=== PATIENT | female | born 1955 | race Caucasian/White ===

== ENCOUNTER 2022-08-21 08:15 | Inpatient (IN) | payer BC, OTHER ==
--- OUTSIDE RECORDS SUMMARY | 2022-08-21 08:19 | XMS REPORT | Continuity of Care Document ---
:1955 Author Organization [facility] t Address [address] [place] [address] [place] [id number] Care Team Providers Name Role Phone José Manuel Caba MD Primary Care Physician CATHY HARRIS Attending Clinician Unavailable YULISSA HAQ Attending Clinician Unavailable LAB90 Attending Clinician Unavailable JESSICA WINKLER Attending Clinician Unavailable HARINDER BERRIOS Attending Clinician Unavailable ABNER SILVA Attending Clinician Unavailable MELISSA LIVINGSTON Attending Clinician Unavailable PROVIDER, AFFILIATE Attending Clinician Unavailable Melissa Livingston MD Attending Clinician [phone] JOSÉ MANUEL CABA Attending Clinician Unavailable Luc Haines DO Attending Clinician ROGERS HENSON Attending Clinician Unavailable Rogers Tamayo Attending Clinician Jens Lott MD Attending Clinician 1, [facility] Attending Clinician Unavailable [facility] Attending Clinician Unavailable Long Boggs MD Attending Clinician ROGERS HENSON Admitting Clinician Unavailable Payers Payer Name Policy Type Policy Number Effective Date Expiration Date Uzma ruiz [employer] 16 [id number] 2020 00:00:00 HMO-POS Problems Condition Condition Condition Status Onset Resolution Last Treating Co mments Source Name Details Category Date Date Treatment Clinician Date 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 6-05 Se ybold to to 00:00: - conditions conditions 00 Ex terna classified classified l elsewhere elsewhere COPD COPD Disease Active Daly exacerbati exacerbati 3-06 Se ybold on on 00:00: - 00 Externa l Acute Acute Disease Active Daly non-recurr non-recurr 518 Se ybold ent ent 00:00: - frontal frontal 00 Externa sinusitis sinusitis l Seasonal Seasonal Disease Active Kelse y allergic allergic 518 Seybol d rhinitis rhinitis 00:00: - due to due to 00 Externa pollen pollen l Hyperlipid Hyperlipid Disease Active Elena ugalde emia emia 5 Seybold 00:00: - 00 Externa l Allergic Allergic Disease Active Jamesse y rhinitis rhinitis 08-15 Seybol d 00:00: - 00 Externa l Simple Simple Disease Active Overview: Daly chronic chronic 6-10 Formattin Seybo ld bronchitis bronchitis 00:00: g of this 00 note might be different from the original. On albuterol Last Assessmen t & Plan: Formattin g of this note might be different from the original. Controlle d Essential Essential Disease Active Overview: Daly hypertensi hypertensi 6-10 Formattin Seybold on on 00:00: g of this - 00 note Externa might be l different from the original. On arbLast Assessmen t & Plan: Formattin g of this note might be different from the original. 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 episode episode On snriLast Assessmen t & Plan: Formattin g of this note might be different from the original. Controlle d BRAYDEN BRAYDEN Disease Active Daly (generaliz (generaliz 6-10 Se ybold ed anxiety ed anxiety 00:00: - disorder) disorder) 00 Exte rna l Closed Closed Disease Active Univers fracture fracture 9-18 ity of of right of right 00:00: [place] wrist wrist 00 [facility] Allergies, Adverse Reactions, Alerts Allergy Allergy Status Severity Reaction(s) Onset Inactive Treating Comm ents Source Name Type Date Date Clinician NO KNOWN Drug Active Univers ALLERGIE Class ity of S [facility] [place] [facility] Social History Social Habit Start Date Stop Date Quantity Comments Source History of tobacco Daly Kooekaterina - use External Gender identity Dalyjones cooley - External Sexual orientation Daly Russell - External Exposure to Not sure University of SARS-CoV-2 (event) [facility] [place] [facility] History of Social 2020-07-27 2020-07-27 Daly Kooekaterina - function 00:00:00 00:00:00 External Tobacco use and 2019-06-27 2019-06-27 Never used Universit y of exposure 00:00:00 00:00:00 [facility] [place] [facility] Tobacco Comment 2018-11-04 2018-11-04 Vape Universit y of 00:00:00 00:00:00 [facility] [place] [facility] Sex Ass[birth year] Daly cooley - 00:00:00 00:00:00 External Smoking Status Start Date Stop Date Source Unknown if ever smoked Universit y of [facility] [place] [facility] Occasional tobacco smoker 2022-07-22 00:00:00 Neal borjasnaheed Russell - External Current every day smoker 2019-06-27 00:00:00 Uni versity [facility] Medications Ordered Filled Start Stop Current Ordering Indication Dosage Frequency Signature Comments Components Source Medication Medication Date Date Medication? Clinician (SIG) Name Name Cyanocobala Yes Take by James goldman min 6-05 mouth Seybold (VITAMIN 13:46: - B-12 ER OR) 11 Externa l Cholecalcif Yes Take by James goldman chago 6-05 mouth Seybold (Vitamin 13:46: - D3) 25 MCG 11 Externa (1000 UT) l oral Chewable Tablet Magnesium Yes Take by Danial y 250 MG oral 6-05 mouth Seybold Tablet 13:46: - 11 Externa l BIOTIN 5000 Yes Take by James goldman OR 6-05 mouth Seybold 13:46: - 11 Externa l Ascorbic Yes 1000mg Take 1 Kelse y Acid 6-05 tablet Seybold (Vitamin C) 13:46: (1,000 mg - 1000 MG 11 total) by Externa oral Tablet mouth l daily Cyanocobala 0 Yes Take by James goldman min -05 mouth Seybold (VITAMIN 13:46: - B-12 ER OR) 11 Externa l Cholecalcif 0 Yes Take by James goldman chago 6-05 mouth Seybold (Vitamin 13:46: - D3) 25 MCG 11 Externa (1000 UT) l oral Chewable Tablet Magnesium Yes Take by James y 250 MG oral 6-05 mouth Seybold Tablet 13:46: - 11 Externa l BIOTIN 5000 0 Yes Take by James lopezy OR 6-05 mouth Seybold 13:46: - 11 Externa l Ascorbic 0 Yes 1000mg Take 1 Kelse y Acid -05 tablet Seybold (Vitamin C) 13:46: (1,000 mg - 1000 MG 11 total) by Externa oral Tablet mouth l daily ALBUTEROL 2022-0 2022- No Inhale Kelse y SULFATE IN 07-22-05 into the Seyb old 13:43: 00:00 lungs - 30 :00 Externa l Venlafaxine 2022-0 Yes [id number] TAKE 2 Daly HCl 75 MG 6-05 CAPSULES(1 Seyb old oral 00:00: 50 MG) BY - Capsule 24 00 MOUTH Externa Hour DAILY l Sustained Release Venlafaxine 2022-0 Yes [id number] TAKE 2 Daly HCl 75 MG 6-05 CAPSULES(1 Seyb old oral 00:00: 50 MG) BY - Capsule 24 00 MOUTH Externa Hour DAILY l Sustained Release Atorvastati 2022-0 Yes [id number] 10mg Take 1 Daly n Calcium 5-17 tablet (10 Seyb old 10 MG oral 00:00: mg total) - Tablet 00 by mouth Externa daily l Atorvastati 2022-0 Yes [id number] 10mg Take 1 Daly n Calcium 5-17 tablet (10 Seyb old 10 MG oral 00:00: mg total) - Tablet 00 by mouth Externa daily l ALBUTEROL 2022-0 Yes Inhale Daly SULFATE IN 3-20 into the Seybo ld 14:36: lungs - 24 Externa l Venlafaxine 2022-0 Yes [id number] TAKE 2 Daly HCl 75 MG 3-20 CAPSULES(1 Seyb old oral 00:00: 50 MG) BY - Capsule 24 00 MOUTH Externa Hour DAILY l Sustained Release Venlafaxine 2022-0 2023- No [id number] TAKE 2 Daly HCl 75 MG 3-20 06-05 CAPSULES(1 Sey bold oral 00:00: 00:00 50 MG) BY - Capsule 24 00 :00 MOUTH Externa Hour DAILY l Sustained Release Albuterol 2022-0 Yes [id number] 2{puff} Q.25D Inhale 2 Daly HFA 108 (90 3-06 puffs into Se ybold Base) 00:00: the lungs - MCG/ACT IN 00 every 6 Rn Float a AERS hours as l needed for wheezing or shortness of breath methylPREDN 2022-0 Yes [id number] 1{loree} Take 1 loree Daly ISolone 4 3-06 by mouth Seybol d MG oral 00:00: See Admin - Tablet 00 Instructio Externa Therapy ns Use as l Pack directed FLUTICASONE 2022-0 Yes [id number] 2 sprays Daly PROPIONATE, 3-06 in each Seybo ld NASAL, 50 00:00: nostril - MCG/ACT 00 daily prn Externa nasal for l Suspension congestion Azelastine 2022-0 Yes [id number] 2 sprays Daly HCl 0.1 % 3-06 in each Seybold nasal 00:00: nostril - Solution 00 bid prn Externa for l congestion Montelukast 2022-0 Yes [id number] 10mg Take 1 Daly (Singulair) 3-06 tablet (10 Se ybold 10 MG oral 00:00: mg total) - Tablet 00 by mouth Externa tablet nightly l Benzonatate 2022-0 Yes [id number] 200mg Q.[id number] Take 1 Daly 200 MG oral 3-06 [id number] capsule Seybold Capsule 00:00: 3D (200 mg - 00 total) by Externa mouth 3 l times daily as needed for cough Albuterol 2022-0 Yes [id number] 2{puff} Q.25D Inhale 2 Daly HFA 108 (90 3-06 puffs into Se ybold Base) 00:00: the lungs - MCG/ACT IN 00 every 6 Rn Float a AERS hours as l needed for wheezing or shortness of breath FLUTICASONE 2022-0 Yes [id number] 2 sprays Daly PROPIONATE, 3-06 in each Seybo ld NASAL, 50 00:00: nostril - MCG/ACT 00 daily prn Externa nasal for l Suspension congestion Albuterol 2022-0 Yes [id number] 2{puff} Q.25D Inhale 2 Daly HFA 108 (90 3-06 puffs into Se ybold Base) 00:00: the lungs - MCG/ACT IN 00 every 6 Rn Float a AERS hours as l needed for wheezing or shortness of breath FLUTICASONE 2022-0 Yes [id number] 2 sprays Daly PROPIONATE, 3-06 in each Seybo ld NASAL, 50 00:00: nostril - MCG/ACT 00 daily prn Externa nasal for l Suspension congestion Albuterol 0 Yes [id number] 2{puff} Q.25D Inhale 2 Daly HFA 108 (90 3-06 puffs into Se ybold Base) 00:00: the lungs - MCG/ACT IN 00 every 6 Rn Float a AERS hours as l needed for wheezing or shortness of breath methylPREDN 2022-0 Yes [id number] 1{loree} Take 1 loree Daly ISolone 4 3-06 by mouth Seybol d MG oral 00:00: See Admin - Tablet 00 Instructio Externa Therapy ns Use as l Pack directed FLUTICASONE 2022-0 Yes [id number] 2 sprays Daly PROPIONATE, 3-06 in each Seybo ld NASAL, 50 00:00: nostril - MCG/ACT 00 daily prn Externa nasal for l Suspension congestion Azelastine 2022-0 Yes [id number] 2 sprays Daly HCl 0.1 % 3-06 in each Seybold nasal 00:00: nostril - Solution 00 bid prn Externa for l congestion Montelukast 2022-0 Yes [id number] 10mg Take 1 Daly (Singulair) 3-06 tablet (10 Se ybold 10 MG oral 00:00: mg total) - Tablet 00 by mouth Externa tablet nightly l Benzonatate 2022-0 Yes [id number] 200mg Q.[id number] Take 1 Daly 200 MG oral 3-06 [id number] capsule Seybold Capsule 00:00: 3D (200 mg - 00 total) by Externa mouth 3 l times daily as needed for cough methylPREDN No [id number] 1{loree} Take 1 loree Daly ISolone 4 04-22 by mouth Seybo ld MG oral 00:00: 00:00 See Admin - Tablet 00 :00 Instructio Externa Therapy ns Use as l Pack directed Cefdinir 2022- No [id number] 300mg Take 1 Daly 300 MG oral 04-22 capsule Seyb old Capsule 00:00: 00:00 (300 mg - 00 :00 total) by Externa mouth 2 l times daily for 10 days Azelastine 2022- No [id number] 2 sprays Daly HCl 0.1 % 04-22 in each Seybol d nasal 00:00: 00:00 nostril - Solution 00 :00 bid prn Externa for l congestion Montelukast 2022- No [id number] 10mg Take 1 Daly (Singulair) 04-22 tablet (10 S eybold 10 MG oral 00:00: 00:00 mg total) - Tablet 00 :00 by mouth Externa tablet nightly l Benzonatate 2022- No [id number] 200mg Q.[id number] Take 1 Daly 200 MG oral 04-22 [id number] capsule Seybold Capsule 00:00: 00:00 3D (200 mg - 00 :00 total) by Externa mouth 3 l times daily as needed for cough Cefdinir No [id number] 300mg Take 1 Daly 300 MG oral 04-22-17 capsule Seyb old Capsule 00:00: 04:59 (300 mg - 00 :00 total) by Externa mouth 2 l times daily for 10 days Venlafaxine 2021-02 Yes [id number] TAKE 2 Daly HCl 75 MG 2-22 CAPSULES(1 Seyb old oral 00:00: 50 MG) BY - Capsule 24 00 MOUTH Externa Hour DAILY l Sustained Release Venlafaxine 2021-02- No [id number] TAKE 2 Daly HCl 75 MG 2-22 03-20 CAPSULES(1 Sey bold oral 00:00: 00:00 50 MG) BY - Capsule 24 00 :00 MOUTH Externa Hour DAILY l Sustained Release Losartan 2021-02 Yes [id number] TAKE 1 James sey Potassium 0-03 TABLET(100 Seyb old 100 MG oral 00:00: MG) BY - Tablet 00 MOUTH IN Externa THE l MORNING Losartan 2021-02 Yes [id number] TAKE 1 James sey Potassium 0-03 TABLET(100 Seyb old 100 MG oral 00:00: MG) BY - Tablet 00 MOUTH IN Externa THE l MORNING Losartan 2021-02 Yes [id number] TAKE 1 James sey Potassium 0-03 TABLET(100 Seyb old 100 MG oral 00:00: MG) BY - Tablet 00 MOUTH IN Externa THE l MORNING Losartan 2021-02 Yes [id number] TAKE 1 James sey Potassium 0-03 TABLET(100 Seyb old 100 MG oral 00:00: MG) BY - Tablet 00 MOUTH IN Externa THE l MORNING Amoxicillin Yes [id number] 1{tbl} Take 1 Daly -Pot 5-18 tablet by Seybold Clavulanate 00:00: mouth in 875-125 MG 00 the oral Tablet morning and 1 tablet in the evening. Benzonatate Yes [id number] 100mg Q.[id number] Take 1 Daly (Tessalon 5-18 [id number] capsule S ellyn Diaz) 100 00:00: 3D (100 mg MG oral 00 total) by Capsule mouth 3 times daily as needed for cough Trazodone 2021- No 50mg Take 50 mg K elsey HCl 50 MG 06-25 by mouth Seybo ld oral Tablet 14:56: 00:00 nightly 16 :00 ALBUTEROL Yes Inhale Daly SULFATE IN 06-25 into the Seybo ld 13:50: lungs 40 ALBUTEROL 0 Yes Inhale Daly SULFATE IN 06-25 into the Seybo ld 13:50: lungs 40 ALBUTEROL 0 Yes Inhale Daly SULFATE IN 06-25 into the Seybo ld 13:50: lungs - 40 Externa l Losartan 2021- No 25mg Take 25 mg Ke lsey Potassium 06-25 by mouth Seybo ld 25 MG oral 13:50: 00:00 daily Tablet 17 :00 Trazodone Yes [id number] 50mg QD Take 1 K elsey HCl 50 MG 5-09 tablet (50 Seyb old oral Tablet 00:00: mg total) - 00 by mouth Externa nightly as l needed for sleep Trazodone Yes [id number] 50mg QD Take 1 K elsey HCl 50 MG 5-09 tablet (50 Seyb old oral Tablet 00:00: mg total) - 00 by mouth Externa nightly as l needed for sleep Trazodone Yes [id number] 50mg QD Take 1 K elsey HCl 50 MG 5-09 tablet (50 Seyb old oral Tablet 00:00: mg total) - 00 by mouth Externa nightly as l needed for sleep Atorvastati Yes 10mg Take 1 Tiara ey n Calcium 5-09 tablet (10 Seyb old 10 MG oral 00:00: mg total) Tablet 00 by mouth daily Losartan Yes [id number] 100mg Take 1 Ke lsey Potassium 5-09 tablet Seybold 100 MG oral 00:00: (100 mg Tablet 00 total) by mouth daily Venlafaxine Yes [id number] TAKE 2 Daly HCl 75 MG 5-09 CAPSULES(1 Seyb old oral 00:00: 50 MG) BY Capsule 24 00 MOUTH Hour DAILY Sustained Release Trazodone Yes [id number] 50mg QD Take 1 K elsey HCl 50 MG 5-09 tablet (50 Seyb old oral Tablet 00:00: mg total) 00 by mouth nightly as needed for sleep Atorvastati Yes 10mg Take 1 Tiara ey n Calcium 5-09 tablet (10 Seyb old 10 MG oral 00:00: mg total) Tablet 00 by mouth daily Losartan Yes [id number] 100mg Take 1 Ke lsey Potassium 5-09 tablet Seybold 100 MG oral 00:00: (100 mg Tablet 00 total) by mouth daily Venlafaxine Yes [id number] TAKE 2 Daly HCl 75 MG 5-09 CAPSULES(1 Seyb old oral 00:00: 50 MG) BY Capsule 24 00 MOUTH Hour DAILY Sustained Release Trazodone Yes [id number] 50mg QD Take 1 K elsey HCl 50 MG 5-09 tablet (50 Seyb old oral Tablet 00:00: mg total) 00 by mouth nightly as needed for sleep Atorvastati Yes 10mg Take 1 Tiara ey n Calcium 5-09 tablet (10 Seyb old 10 MG oral 00:00: mg total) - Tablet 00 by mouth Externa daily l Trazodone Yes [id number] 50mg QD Take 1 K elsey HCl 50 MG 5-09 tablet (50 Seyb old oral Tablet 00:00: mg total) - 00 by mouth Externa nightly as l needed for sleep Atorvastati Yes 10mg Take 1 Tiara ey n Calcium 5-09 tablet (10 Seyb old 10 MG oral 00:00: mg total) - Tablet 00 by mouth Externa daily l Venlafaxine 2021- No TAKE 2 James sey HCl 75 MG 3-12 22- CAPSULES(1 Sey bold oral 00:00: 00:00 50 MG) BY Capsule 24 00 :00 MOUTH Hour DAILY Sustained Release Losartan 2021- No [id number] 100mg Take 1 K elsey Potassium 3-08 21- tablet Seybold 100 MG oral 00:00: 00:00 (100 mg Tablet 00 :00 total) by mouth in the morning. Cyclobenzap 2021- No [id number] 10mg Q.[id number] Take 1 Daly rine HCl 10 -05 22- [id number] tablet (10 Seybold MG oral 00:00: 00:00 3D mg total) Tablet 00 :00 by mouth 3 times daily as needed for muscle spasms Meloxicam 2021- No [id number] 7.5mg Take 1 Daly 7.5 MG oral 09-20- tablet Seybo ld Tablet 00:00: 00:00 (7.5 mg 00 :00 total) by mouth daily Amoxicillin 2021- No [id number] 500mg Take 1 Daly 500 MG oral 08-15 9100 capsule Seyb old Capsule 00:00: 00:00 (500 mg 00 :00 total) by mouth 3 times daily Atorvastati 2021- No [id number] 10mg Take 1 Daly n Calcium 6-12 22-09 tablet (10 Sey bold 10 MG oral 00:00: 00:00 mg total) Tablet 00 :00 by mouth daily cefTRIAXone 2019- No 1000mg 1,000 mg, Univers (ROCEPHIN) 06-27 IV ity of 1,000 mg in 01:45: 13:44 Piggyback, [place] NaCl 0.9% 00 :00 ONCE, 1 Medical (NS) 50 mL dose, [facility] ch MINI-BAG 06/27/19 at 2045, 50 mL
Reas on for Anti-Infec tive: Documented Infection< br>Documen julio Infection Site: Urine
D uration of Therapy: Other (see Comments) tamsulosin 2019- No .4mg 0.4 mg, Uni vers (FLOMAX) 06-27 Oral, ity of capsule 0.4 01:30: 00:28 ONCE, 1 [place] mg 00 :00 dose, [facility] 06/27/19 at Branch 2030, Routine ketorolac No 15mg 15 mg, Unive rs (TORADOL) 06-27 Slow IV ity of injection 00:30: 23:40 Push, [place] 15 mg 00 :00 ONCE, 1 Medical dose, [facility] 06/27/19 at 1930, NIKKO
Fa culty member approving Restricted medication : RED ODOM morpHINE 2019- No 4mg 4 mg, Slow Un tiara injection 4 06-26-10 IV Push, ity of mg 22:30: 22:01 ONCE, 1 [place] 00 :00 dose, [facility] 06/27/19 at Branch 1730, STAT ondansetron 2019- No 4mg 4 mg, Slow Univers (ZOFRAN 06-2610 IV Push, ity of (PF)) 22:30: 22:00 ONCE, 1 [place] injection 4 00 :00 dose, [place] Med ical mg 06/27/19 at Branch 1730, NIKKO NaCl 0.9% 2019- No 1000mL at 999 Uni vers (NS) bolus 06-26 05-10 mL/hr, ity of infusion 21:30: 23:40 1,000 mL, [place] as 1,000 mL 00 :00 IV Medical Infusion, [place] ONCE, 1 dose, 06/27/19 at 1630, NIKKO ketorolac 2020-0 Yes [id number] 10mg Take 1 Un tiara 10 mg 5-10 tablet by ity of tablet 00:00: mouth [place] 00 every 6 Medical (six) Branch hours as needed for Pain (scale 7-10). ondansetron 2020-0 Yes [id number] 4mg Take 1 Univers 4 mg 5-10 tablet by ity of disintegrat 00:00: mouth [place] ing tablet 00 every 12 Medic al (twelve) Branch hours as needed for Nausea and Vomiting (N/V). tamsulosin 2020-0 Yes [id number] .4mg Take 1 U nivers 0.4 mg 24 5-10 capsule by ity of hr capsule 00:00: mouth at [place] as 00 bedtime. Medical Branch ketorolac 2020-0 Yes [id number] 10mg Take 1 Un tiara 10 mg 5-10 tablet by ity of tablet 00:00: mouth [place] 00 every 6 Medical (six) Branch hours as needed for Pain (scale 7-10). ondansetron 2020-0 Yes [id number] 4mg Take 1 Univers 4 mg 5-10 tablet by ity of disintegrat 00:00: mouth [place] ing tablet 00 every 12 Medic al (twelve) Branch hours as needed for Nausea and Vomiting (N/V). tamsulosin 2020-0 Yes [id number] .4mg Take 1 U nivers 0.4 mg 24 5-10 capsule by ity of hr capsule 00:00: mouth at [place] as 00 bedtime. Medical Branch cefdinir 2019-0 2020- No [id number] 300mg Take 1 U nivers 300 mg 5-10 05-21 capsule by ity of capsule 00:00: 04:59 mouth 2 [place] 00 :00 (two) Medical times Branch daily for 10 days. traMADol 2019- No 50mg 50 mg, Univer s (ULTRAM) 10-31 Oral, ity of tablet 50 09:00: 07:48 ONCE, 1 [place] mg 00 :00 dose, Sat Medical 10/31/18 at Branch 0400, Routine ketorolac 2018- No 30mg 30 mg, Unive rs (TORADOL) 10-31 Intramuscu ity of injection 08:30: 07:41 lar, ONCE, [place] 30 mg 00 :00 1 dose, Medical Sat Branch 10/31/18 at 0330, NIKKO
Fa culty member approving Restricted medication : LONG BOGGS ondansetron 2019- No 4mg 4 mg, Univ ers (ZOFRAN-ODT 10-31 Oral, ity of ) 08:30: 07:48 ONCE, 1 [place] disintegrat 00 :00 dose, Sat Med ical ing tablet 10/31/18 at [facility] 4 mg 0330, Routine traMADol Yes [id number] 50mg Take 1 Un tiara (ULTRAM) 50 9-14 tablet by ity of mg tablet 00:00: mouth [place] 00 every 6 Medical (six) Branch hours as needed for Pain (scale 7-10). ondansetron Yes [id number] 4mg Take 1 Univers (ZOFRAN) 4 9-14 tablet by ity of mg tablet 00:00: mouth [place] 00 every 8 Medical (eight) Branch hours as needed for Nausea and Vomiting (N/V). traMADol 2018- Yes [id number] 50mg Take 1 Un tiara (ULTRAM) 50 9-14 tablet by ity of mg tablet 00:00: mouth [place] 00 every 6 Medical (six) Branch hours as needed for Pain (scale 7-10). ondansetron Yes [id number] 4mg Take 1 Univers (ZOFRAN) 4 9-14 tablet by ity of mg tablet 00:00: mouth [place] 00 every 8 Medical (eight) Branch hours as needed for Nausea and Vomiting (N/V). traMADol 2019- Yes [id number] 50mg Take 1 Un tiara (ULTRAM) 50 9-14 tablet by ity of mg tablet 00:00: mouth [place] 00 every 6 Medical (six) Branch hours as needed for Pain (scale 7-10). ondansetron 2019-0 Yes [id number] 4mg Take 1 Univers (ZOFRAN) 4 9-14 tablet by ity of mg tablet 00:00: mouth [place] 00 every 8 Medical (eight) Branch hours as needed for Nausea and Vomiting (N/V). traMADol 2019-0 Yes [id number] 50mg Take 1 Un tiara (ULTRAM) 50 9-14 tablet by ity of mg tablet 00:00: mouth [place] 00 every 6 Medical (six) Branch hours as needed for Pain (scale 7-10). ondansetron 2019-0 Yes [id number] 4mg Take 1 Univers (ZOFRAN) 4 9-14 tablet by ity of mg tablet 00:00: mouth [place] 00 every 8 Medical (eight) Branch hours as needed for Nausea and Vomiting (N/V). traMADol 2019-0 Yes [id number] 50mg Take 1 Un tiara (ULTRAM) 50 9-14 tablet by ity of mg tablet 00:00: mouth [place] 00 every 6 Medical (six) Branch hours as needed for Pain (scale 7-10). ondansetron 2019-0 Yes [id number] 4mg Take 1 Univers (ZOFRAN) 4 9-14 tablet by ity of mg tablet 00:00: mouth [place] 00 every 8 Medical (eight) Branch hours as needed for Nausea and Vomiting (N/V). traMADol 2019-0 Yes [id number] 50mg Take 1 Un tiara (ULTRAM) 50 9-14 tablet by ity of mg tablet 00:00: mouth [place] 00 every 6 Medical (six) Branch hours as needed for Pain (scale 7-10). ondansetron 2019-0 Yes [id number] 4mg Take 1 Univers (ZOFRAN) 4 9-14 tablet by ity of mg tablet 00:00: mouth [place] 00 every 8 Medical (eight) Branch hours as needed for Nausea and Vomiting (N/V). traMADol 2019-0 Yes [id number] 50mg Take 1 Un tiara (ULTRAM) 50 9-14 tablet by ity of mg tablet 00:00: mouth [place] 00 every 6 Medical (six) Branch hours as needed for Pain (scale 7-10). traMADol 2019-0 Yes [id number] 50mg Take 1 Un tiara (ULTRAM) 50 9-14 tablet by ity of mg tablet 00:00: mouth [place] 00 every 6 Medical (six) Branch hours as needed for Pain (scale 7-10). ondansetron 2019-0 Yes [id number] 4mg Take 1 Univers (ZOFRAN) 4 9-14 tablet by ity of mg tablet 00:00: mouth [place] 00 every 8 Medical (eight) Branch hours as needed for Nausea and Vomiting (N/V). ondansetron Yes [id number] 4mg Take 1 Univers (ZOFRAN) 4 9-14 tablet by ity of mg tablet 00:00: mouth [place] 00 every 8 Medical (eight) Branch hours as needed for Nausea and Vomiting (N/V). traMADol Yes [id number] 50mg Take 1 Un tiara (ULTRAM) 50 9-14 tablet by ity of mg tablet 00:00: mouth [place] 00 every 6 Medical (six) Branch hours as needed for Pain (scale 7-10). ondansetron Yes [id number] 4mg Take 1 Univers (ZOFRAN) 4 9-14 tablet by ity of mg tablet 00:00: mouth [place] 00 every 8 Medical (eight) Branch hours as needed for Nausea and Vomiting (N/V). losartan 2015-02 Yes 25mg Take 25 mg Uni vers (COZAAR) 25 1-30 by mouth ity of mg tablet 18:02: daily. [address] venlafaxine 2015-02 Yes 150mg Take 150 U nivers XR (EFFEXOR 1-30 mg by ity of XR) 150 mg 18:02: mouth [place] 24 hr 02 daily with Medical capsule breakfast. Branch losartan 2015-02 Yes 25mg Take 25 mg Uni vers (COZAAR) 25 1-30 by mouth ity of mg tablet 18:02: daily. [address] venlafaxine 2015-02 Yes 150mg Take 150 U nivers XR (EFFEXOR 1-30 mg by ity of XR) 150 mg 18:02: mouth [place] 24 hr 02 daily with Medical capsule breakfast. [place] losartan 2015-02 Yes 25mg Take 25 mg Uni vers (COZAAR) 25 1-30 by mouth ity of mg tablet 18:02: daily. [address] venlafaxine 2015-02 Yes 150mg Take 150 U nivers XR (EFFEXOR 1-30 mg by ity of XR) 150 mg 18:02: mouth [place] 24 hr 02 daily with Medical capsule breakfast. Branch losartan 2015-02 Yes 25mg Take 25 mg Uni vers (COZAAR) 25 1-30 by mouth ity of mg tablet 18:02: daily. [address] losartan 2015-02 Yes 25mg Take 25 mg Uni vers (COZAAR) 25 1-30 by mouth ity of mg tablet 18:02: daily. [place] [facility] venlafaxine 2015-02 Yes 150mg Take 150 U nivers XR (EFFEXOR 1-30 mg by ity of XR) 150 mg 18:02: mouth [place] 24 hr 02 daily with Medical capsule breakfast. [place] venlafaxine 2015-02 Yes 150mg Take 150 U nivers XR (EFFEXOR 1-30 mg by ity of XR) 150 mg 18:02: mouth [place] 24 hr 02 daily with Medical capsule breakfast. [place] losartan 2015-02 Yes 25mg Take 25 mg Uni vers (COZAAR) 25 1-30 by mouth ity of mg tablet 18:02: daily. [place] [facility] venlafaxine 2015-02 Yes 150mg Take 150 U nivers XR (EFFEXOR 1-30 mg by ity of XR) 150 mg 18:02: mouth [place] 24 hr 02 daily with Medical capsule breakfast. [place] losartan 2015-02 Yes 25mg Take 25 mg Uni vers (COZAAR) 25 1-30 by mouth ity of mg tablet 18:02: daily. [place] [facility] venlafaxine 2015-02 Yes 150mg Take 150 U nivers XR (EFFEXOR 1-30 mg by ity of XR) 150 mg 18:02: mouth [place] 24 hr 02 daily with Medical capsule breakfast. [place] losartan 2015-02 Yes 25mg Take 25 mg Uni vers (COZAAR) 25 1-30 by mouth ity of mg tablet 18:02: daily. [place] [facility] venlafaxine 2015-02 Yes 150mg Take 150 U nivers XR (EFFEXOR 1-30 mg by ity of XR) 150 mg 18:02: mouth [place] 24 hr 02 daily with Medical capsule breakfast. [place] losartan 2015-02 Yes 25mg Take 25 mg Uni vers (COZAAR) 25 1-30 by mouth ity of mg tablet 18:02: daily. [place] [facility] venlafaxine 2015-02 Yes 150mg Take 150 U nivers XR (EFFEXOR 1-30 mg by ity of XR) 150 mg 18:02: mouth [place] 24 hr 02 daily with Medical capsule breakfast. [place] ibuprofen 2015-02 Yes 600mg Take 1 Unive rs (MOTRIN) 1-30 tablet by ity of 600 mg 00:00: mouth [place] tablet 00 every 6 Medical (six) Branch hours as needed for Pain (scale 4-6). ibuprofen 2015-02 Yes 600mg Take 1 Unive rs (MOTRIN) 1-30 tablet by ity of 600 mg 00:00: mouth [place] tablet 00 every 6 Medical (six) Branch hours as needed for Pain (scale 4-6). ibuprofen 2015-02 Yes 600mg Take 1 Unive rs (MOTRIN) 1-30 tablet by ity of 600 mg 00:00: mouth [place] tablet 00 every 6 Medical (six) Branch hours as needed for Pain (scale 4-6). ibuprofen 2015-02 Yes 600mg Take 1 Unive rs (MOTRIN) 1-30 tablet by ity of 600 mg 00:00: mouth [place] tablet 00 every 6 Medical (six) Branch hours as needed for Pain (scale 4-6). ibuprofen 2015-02 Yes 600mg Take 1 Unive rs (MOTRIN) 1-30 tablet by ity of 600 mg 00:00: mouth [place] tablet 00 every 6 Medical (six) Branch hours as needed for Pain (scale 4-6). ibuprofen 2015-02 Yes 600mg Take 1 Unive rs (MOTRIN) 1-30 tablet by ity of 600 mg 00:00: mouth [place] tablet 00 every 6 Medical (six) Branch hours as needed for Pain (scale 4-6). ibuprofen 2015-02 Yes 600mg Take 1 Unive rs (MOTRIN) 1-30 tablet by ity of 600 mg 00:00: mouth [place] tablet 00 every 6 Medical (six) Branch hours as needed for Pain (scale 4-6). ibuprofen 2015-02 Yes 600mg Take 1 Unive rs (MOTRIN) 1-30 tablet by ity of 600 mg 00:00: mouth [place] tablet 00 every 6 Medical (six) Branch hours as needed for Pain (scale 4-6). ibuprofen 2015-02 Yes 600mg Take 1 Unive rs (MOTRIN) 1-30 tablet by ity of 600 mg 00:00: mouth [place] tablet 00 every 6 Medical (six) Branch hours as needed for Pain (scale 4-6). Immunizations Ordered Immunization Filled Immunization Date Status Commen ts Source Name Name Covid-19 Vaccine 2020-05-23 Completed Daly Langford (Spikevax), 00:00:00 - Ext ernal Mrna-lnp, Angelo Protein, Pf Covid-19 Vaccine 2020-05-23 Completed Daly ragland Moderna (Spikevax), 00:00:00 - Ext ernal Mrna-lnp, Angelo Protein, Pf Covid-19 Vaccine 2020-05-23 Completed [facility] ellyn Moderna (Spikevax), 00:00:00 - Ext ernal Mrna-lnp, Angelo Protein, Pf Covid-19 Vaccine 2020-05-23 Completed Daly ellyn Moderna (Spikevax), 00:00:00 Mrna-lnp, Angelo Protein, Pf Covid-19 Vaccine 2020-05-23 Completed [facility] ellyn Moderna (Spikevax), 00:00:00 Mrna-lnp, Angelo Protein, Pf Covid-19 Vaccine 2020-05-23 Completed Daly S ellyn Moderna (Spikevax), 00:00:00 - Ext ernal Mrna-lnp, Angelo Protein, Pf Covid-19 Vaccine 2020-04-28 Completed Daly ellyn Moderna (Spikevax), 00:00:00 - Ext ernal Mrna-lnp, Angelo Protein, Pf Covid-19 Vaccine 2020-04-28 Completed Daly ellyn Moderna (Spikevax), 00:00:00 - Ext ernal Mrna-lnp, Angelo Protein, Pf Covid-19 Vaccine 2020-04-28 Completed [facility] ellyn Moderna (Spikevax), 00:00:00 - Ext ernal Mrna-lnp, Angelo Protein, Pf Covid-19 Vaccine 2020-04-28 Completed Daly ellyn Moderna (Spikevax), 00:00:00 Mrna-lnp, Angelo Protein, Pf Covid-19 Vaccine 2020-04-28 Completed [facility] ellyn Moderna (Spikevax), 00:00:00 Mrna-lnp, Angelo Protein, Pf Covid-19 Vaccine 2020-04-28 Completed [facility] ellyn Moderna (Spikevax), 00:00:00 - Ext ernal Mrna-lnp, Angelo Protein, Pf Tdap- (Boostrix, 2015-04-06 Completed Daly ellyn Adacel) 00:00:00 - External Shingles SQ 2015-04-06 Completed Daly Seybol d (Zostavax) 00:00:00 - External Tdap- (Boostrix, 2015-04-06 Completed Daly S eybold Adacel) 00:00:00 - External Shingles SQ 2015-04-06 Completed Daly Seybol d (Zostavax) 00:00:00 - External Tdap- (Boostrix, 2015-04-06 Completed Daly S eybold Adacel) 00:00:00 - External Shingles SQ 2015-04-06 Completed Daly Seybol d (Zostavax) 00:00:00 - External Tdap- (Boostrix, 2015-04-06 Completed Daly S eybold Adacel) 00:00:00 Shingles SQ 2015-04-06 Completed Daly Seybol d (Zostavax) 00:00:00 Tdap- (Boostrix, 2015-04-06 Completed Daly S eybold Adacel) 00:00:00 Shingles SQ 2015-04-06 Completed Daly Seybol d (Zostavax) 00:00:00 Tdap- (Boostrix, 2015-04-06 Completed Daly S eybold Adacel) 00:00:00 - External Shingles SQ 2015-04-06 Completed Daly Seybol d (Zostavax) 00:00:00 - External Pneumococcal Vaccine, 2015-02-07 Completed James sey Seybold Polysaccharide 00:00:00 - External Pneumococcal Vaccine, 2015-02-07 Completed James sey Seybold Polysaccharide 00:00:00 - External Pneumococcal Vaccine, 2015-02-07 Completed James sey Seybold Polysaccharide 00:00:00 - External Pneumococcal Vaccine, 2015-02-07 Completed James sey Seybold Polysaccharide 00:00:00 Pneumococcal Vaccine, 2015-02-07 Completed James sey Seybold Polysaccharide 00:00:00 Pneumococcal Vaccine, 2015-02-07 Completed James sey Seybold Polysaccharide 00:00:00 - External Vital Signs Vital Name Observation Time Observation Value Comments Source Systolic blood 2022-07-22 19:25:00 130 mm[Hg] Daly Kooold - pressure External Diastolic blood 2022-07-22 19:25:00 86 mm[Hg] Jamesse y Seybold - pressure External Heart rate 2022-07-22 18:39:00 124 /min Daly S eybold - External Body temperature 2022-07-22 18:39:00 36.67 Aide Tiara ey Seybold - External Respiratory rate 2022-07-22 18:39:00 14 /min Tiara ey Seybold - External Body height 2022-07-22 18:39:00 167.6 cm Daly S eybold - External Body weight 2022-07-22 18:39:00 63.504 kg Daly S eybold - External BMI 2022-07-22 18:39:00 22.60 kg/m2 Daly S eybold - External Systolic blood 2022-05-06 19:33:00 106 mm[Hg] Daly Seybold - pressure External Diastolic blood 2022-05-06 19:33:00 54 mm[Hg] Jamesse y Seybold - pressure External Heart rate 2022-05-06 19:33:00 100 /min Daly S eybold - External Body temperature 2022-05-06 19:33:00 36.56 Aide Tiara ey Seybold - External Respiratory rate 2022-05-06 19:33:00 15 /min Tiara ey Seybold - External Body height 2022-05-06 19:33:00 167.6 cm Daly S eybold - External Body weight 2022-05-06 19:33:00 63.957 kg Daly S eybold - External BMI 2022-05-06 19:33:00 22.76 kg/m2 Daly S eybold - External Systolic blood 2021-06-25 18:44:00 142 mm[Hg] Daly Seybold pressure Diastolic blood 2021-06-25 18:44:00 76 mm[Hg] Kelse y Seybold pressure Heart rate 2021-06-25 18:44:00 101 /min Daly S eybold Body temperature 2021-06-25 18:44:00 35.17 Aide Tiara ey Seybold Respiratory rate 2021-06-25 18:44:00 16 /min Tiara ey Seybold Body height 2021-06-25 18:44:00 167.6 cm Daly ragland Body weight 2021-06-25 18:44:00 63.504 kg Daly ragland BMI 2021-06-25 18:44:00 22.60 kg/m2 Daly ragland Systolic blood 2019-06-28 00:28:00 157 mm[Hg] Univer sity of pressure [place] [facility] [place] Diastolic blood 2019-06-28 00:28:00 91 mm[Hg] Unive rsity of pressure [facility] [place] [facility] Respiratory rate 2019-06-28 00:28:00 20 /min Univ ersity of [facility] [place] [facility] Oxygen saturation in 2019-06-28 00:28:00 99 /min [facility] Arterial blood by [facility] Pulse oximetry Branch Heart rate 2019-06-28 00:10:00 102 /min Universi ty of [facility] [place] [facility] Body temperature 2019-06-27 21:03:00 37.22 Aide Univ ersity of [facility] [place] [facility] Body height 2019-06-27 21:03:00 167.6 cm Universi ty of [place] [facility] [place] Body weight 2019-06-27 21:03:00 58.968 kg Universi ty [facility] [place] [facility] BMI 2019-06-27 21:03:00 20.98 kg/m2 [facility]i [facility] [place] [facility] Systolic blood 2018-11-04 19:50:00 129 mm[Hg] Univer sity of pressure [facility] Diastolic blood 2018-11-04 19:50:00 84 mm[Hg] Unive rsity of [facility] Heart rate 2018-11-04 19:50:00 90 /min [facility]i ty [facility] [place] [facility] Body height 2018-11-04 19:42:00 167.6 cm [facility] [place] [facility] Body weight 2018-11-04 19:42:00 56.7 kg [facility] [place] [facility] BMI 2018-11-04 19:42:00 20.18 kg/m2 Universi ty of [facility] Systolic blood 2018-10-31 06:12:00 133 mm[Hg] Univer sity of pressure [place] [facility] Diastolic blood 2018-10-31 06:12:00 86 mm[Hg] Unive rsity of pressure [facility] [place] [facility] Heart rate 2018-10-31 06:12:00 89 /min Universi ty of [place] [facility] [place] Body temperature 2018-10-31 06:12:[address] [facility] Respiratory rate 2018-10-31 06:12:00 16 /min [facility] Body height 2018-10-31 06:12:00 167.6 cm [facility] Body weight 2018-10-31 06:12:00 56.7 kg [facility] BMI 2018-10-31 06:12:00 20.18 kg/m2 [facility] Oxygen saturation in 2018-10-31 06:12:00 99 /min [facility] Arterial blood by [facility] Pulse oximetry [place] Procedures Procedure Date / Time Performing Clinician Source Performed QUANTAFLO 2022-07-22 18:55:20 Yulissa Haq ld - External URINALYSIS 2019-06-27 22:52:00 Rogers Henson [facility] ABDOMEN PELVIS WO 2019-06-27 22:24:30 Rogers Henson [facility] COMP. METABOLIC PANEL 2019-06-27 21:57:[address] [facility] ([id number]) [facility] CBC WITH DIFFERENTIAL 2019-06-27 21:57:00 Rogers Henson [facility] LACTIC ACID WHOLE BLOOD 2019-06-27 21:57:00 Rogers Henson Uni [facility] NOTICE OF PRIVACY 2019-06-27 20:59:34 Doctor Unassigned, No [facility] PRACTICES [facility] CONSENT/REFUSAL FOR 2019-06-27 20:58:31 [facility]assigned, No [facility] Name [facility] XR CHEST 1 VW 2018-11-04 21:25:20 Jens Lott [facility] CONSENT/REFUSAL FOR 2018-11-04 20:53:40 [facility]igned, [facility] ASSIGNMENT OF BENEFITS 2018-11-04 20:53:10 Doctor Unassigned, No [facility] XR WRIST <3 VW RIGHT 2018-11-04 20:13:46 Jens Lott [facility] XR FOREARM 2 VW RIGHT 2018-10-31 06:49:45 [place] [facility] 2018-10-31 05:59:40 Doctor Unassigned, No Univ [facility] PRACTICES Name Medical Branch CONSENT/REFUSAL FOR 2018-10-31 05:59:24 Doctor Unassigned, No [facility] Name Medical [place] Encounters Start End Encounter Admission Attending Care Care Encounter Source Date/Time Date/Time Type Type Clinicians Facility Department ID 2022-08-29 2022-08-29 Outpatient STEVEN CATHYKBOY SAPP [id number] [place] 11:00:00 11:00:00 Seybol d 2022-08-22 2022-08-22 Outpatient DALY HAQ [id number] [place]aly 14:00:00 14:00:00 YULISSA Seybol d 2022-08-21 2022-08-21 Outpatient LAB90 DALY SAPP [id number] Daly 08:05:00 08:05:00 Seybol d 2022-08-21 2022-08-21 Outpatient DALY HAQ [id number] [place]aly 00:00:00 00:00:00 YULISSA Seybol d 2022-08-21 2022-08-21 Outpatient DALY HAQ [id number] Daly 00:00:00 00:00:00 YULISSA Seybol d 2022-08-20 2022-08-20 Outpatient DALY WINKLER [id number] Daly 14:15:00 14:15:00 JESSICA Seybol d 2022-08-13 2022-08-13 Outpatient DALY SAPP [id number] Daly 00:00:00 00:00:00 Seybol d 2022-08-12 2022-08-12 Outpatient DALY HAQ [id number] Daly 00:00:00 00:00:00 YULISSA Seybol d 2022-07-22 2022-07-22 Outpatient LAB90 DALY SAPP [id number] Daly 15:15:00 15:15:00 Seybol d 2022-07-22 2022-07-22 Outpatient DALY HAQ [id number] Daly 14:00:00 14:00:00 YULISSA Seybol d 2022-07-03 2022-07-03 Outpatient DALY BERRIOS [id number] [place]aly 00:00:00 00:00:00 HARINDER Seybol d 2022-05-18 2022-05-18 Outpatient DALY SILVA [id number] Daly 00:00:00 00:00:00 ABNER Seybol d 2022-05-06 2022-05-06 Outpatient DALY LIVINGSTON [id number] Daly 15:00:00 15:00:00 MELISSA Seybol d 2022-04-22 2022-04-22 Outpatient DALY SILVA [id number] Daly 12:00:00 12:00:00 ABNER Seybol d 2022-02-07 2022-02-07 Outpatient DALY LIVINGSTON [id number] Daly 00:00:00 00:00:00 MELISSA Seybol d 2021-11-22 2021-11-22 Outpatient PROVIDER, DALY SAPP [id number] [place]aly 00:00:00 00:00:00 AFFILIATE Seyb old 2021-08-29 2021-08-29 Telemedici Raj Livingston [id number] Daly 16:15:00 16:34:26 ne Melissa Torres [id number] Se ybold Somogyi 1.2.7.2.686 [id number] 2021-07-04 2021-07-04 Telemedici Raj BERRIOS [id number] Daly 13:30:00 13:30:00 ne HARINDER Torres [id number] Se ybold 1.2.7.2.686 [id number] 2021-06-25 2021-06-25 Outpatient LAB90 DALY SAPP [id number] Daly 15:15:00 15:15:00 Seybol d 2021-06-25 2021-06-25 Office Raj Livingston [id number] Daly 14:15:00 15:00:00 Visit Melissa Torres 350.1.13.13 Se ybold Somogyi 1.2.7.2.686 [id number] 2021-04-27 2021-04-27 Outpatient GERTRUDISMARCELOJOSÉ MANUELEILEEN SAPP [id number] Daly 00:00:00 00:00:00 Seybol d 2021-04-22 2021-04-22 Outpatient DALY LIVINGSTON [id number] Daly 00:00:00 00:00:00 MELISSA Seybol d 2021-01-26 2021-01-26 Outpatient GERTRUDIS JOSÉ MANUEL SAPP [id number] Daly 00:00:00 00:00:00 Seybol d 2021-01-22 2021-01-22 Outpatient DALY LIVINGSTON [id number] Daly 00:00:00 00:00:00 MELISSA Seybol d 2020-09-20 2020-09-20 Outpatient DALY LIVINGSTON [id number] Daly 15:00:00 15:00:00 MELISSA Seybol d 2020-04-24 2020-04-24 Patient [facility] [id number] Univers 00:00:00 00:00:00 Outreach Luc CLEARY 350.1.13.10 i ty of [facility] 4.2.7.2.686 [facility] [id number] [facility] [address] [place] 2019-06-27 2019-06-27 Emergency [facility] [id number] Univers 16:14:42 19:55:00 ROGERS ity of [facility] 2019-06-27 2019-06-27 Emergency [facility] [id number] Univers 16:14:42 19:55:00 Rogersclemente Duran 350.1.13.10 i ty of Josué 4.2.7.2.686 [facility] [id number] [facility] 084 Branch 2018-11-04 2018-11-04 [facility] [id number] Univers 15:54:09 23:59:00 Encounter Jens Duran [id number] ity of [place] 4.2.7.2.686 [facility] [id number] [facility] 807 Branch 2018-11-04 2018-11-04 Traffic Administrator 1, [facility] [place] [id number] Univers 15:45:07 16:00:07 Visit Jens Lott 350.1.13.10 ity of [place] 4.2.7.2.686 [facility] [id number] [facility] 353 Branch 2018-11-04 2018-11-04 Hospital Jens Lott [facility] 1.2.840 .114 [id number] Univers 15:49:30 15:53:00 Encounter Station, [facility] Renee 350.1.13 .10 ity of [place] 4.2.7.2.686 [facility] [id number] [facility] 051 Branch 2018-11-04 2018-11-04 [facility] Oren [facility] 1.2.840.114 [id number] Univers 15:13:45 15:48:00 Encounter Jens Bean 350.1.13.10 ity of Surgical 4.2.7.2.686 Amando as Specialti [id number] Ak dical es [address] [facility] 2018-11-04 2018-11-04 Office Oren [facility] [id number] Univers 14:41:07 14:56:07 Visit Jens Bean 350.1.13.10 it y of Surgical 4.2.7.2.686 Amando as Specialti [id number] Ak dical es 198 [facility] 2018-10-31 2018-10-31 Emergency [facility] [id number] Univers 01:14:47 03:19:00 Russeljohn Duran 350.1.13.10 ity of [place] 4.2.7.2.686 [facility] [id number] [facility] 084 [place] Results Test Description Test Time Test Comments Results Result Comments Source ALIYAH 2022-07-22 18:56:00 Test Item Value Reference Range Interpretation Comme nts Pattisusan left side (test 1.25 See_Comment [ Automated message] The system which code = 54334-0I) generated t his result transmitted reference range : 1.40 - 0.90 NA. The reference range was not used to interpret this result as normal/abnormal . QuantaFlo right side (test 1.20 See_Comment P resentation Factors: code = 66793-4S) Hypertensio nExercise Modality: At RestNormal - 1. 40 - 1.00Borderline - 0.99 - 0.90Mild - 0.89 - 0.60Moderate - 0.59 - 0.30Se sherwin - 0.29 - 0.00 [Automated mess age] The system which generated this result transmitted reference range : 1.40 - 0.90 NA. The reference range was not used to interpret this result as normal/abnormal . Daly Russell - [id number] 23:38:00 Test Item Value Reference Range Interpretation Comments APPEARANCE (test code = Hazy Clear A 6383997195) COLOR (test code = Yellow Yellow 7521983832) PH (test code = 4.8-8.0 8664730469) SP GRAVITY (test code = 1.003-1.030 9947570134) GLU U QUAL (test code = Normal Normal 3659775865) BLOOD (test code = Negative Negative INTERFERE NCE FROM 7161455166) ASCORBIC ACID M AY CAUSE FALSE NEG ATIVE RESULT KETONES (test code = 5 mg/dL Negative A 1515642832) PROTEIN (test code = Negative Negative 2887-8) UROBILIN (test code = Normal Normal 0063926411) BILIRUBIN (test code = Negative Negative 6356768667) NITRITE (test code = Negative Negative 1199454799) LEUK MARIAH (test code = 25/uL Negative A 6200830080) RBC/HPF (test code = See_Comment [Autom ated message] 2258471717) The system Valencell generated this result transmitted ref erence range: 0 - 3 HP F. The reference range was not used to int erpret this result as normal/abnormal . WBC/HPF (test code = See_Comment [Autom ated message] 9883874414) The system Valencell generated this result transmitted ref erence range: 0 - 5 HP F. The reference range was not used to int erpret this result as normal/abnormal . BACTERIA (test code = Few Negative A 8504453739) SQ EPITH (test code = HPF 2621527547) Lab Interpretation (test Abnormal code = 57942-2) [facility] [id number] 23:14:23 Obstructing stone at the left ureterovesical junction measuring 4 mm withresultant mild hydroureterand hydronephrosis. Enlargement of the left kidney with perirenal fat stranding as well asproximal periureteral inflammatory changes may be a sequela of theobstructing stone; however, an acute uncomplic ated pyelonephritis isanother possibility if correlated with clinical and laboratory findings. Preliminary Report Dictated by Resident: Pinky Chauhan MD., have reviewed this study and agree with the abovereport.CT ABDOMEN PELVIS WO CONTRAST HISTORY: 64 years-old; Female; Flank pain, stone disease suspected llq abdpain, radiating to back COMPARISON: None TECHNIQUE AND FINDINGS: Contiguous axial imaging from the level of the lungbases through the pubic symphysis was performed without the intravenousadministration of contrast. Coronal and sagittal reconstructions wereobtained. ?Auto mAand/or iterative reconstruction were used to reduceradiation dose. FINDINGS: LOWER THORAX: The lung bases are clear. No cardiomegaly. LIVER: No focal hepatic lesions. Normal contour. GALLBLADDER AND BILIARY TREE: No intra or extrahepatic biliary ductaldilation. No gallbladder wall thickening. SPLEEN: Multiple calcified granulomas are seen. PANCREAS: No ductal dilation or masses. ADRENAL GLANDS: No adrenal mass. KIDNEYS: Obstructing stone at the left ureterovesicular junction measuring4 mm (2:117) with resultant mild hydroureter and hydronephrosis.Enlargement of the left kidney is noted. There is perirenal andperiureteral fat stranding. No stone or hydronephrosis is noted in theright side. PERITONEUM AND RETROPERITONEUM: No free air or fluid collection. LYMPH NODES: No intra-abdominal or pelvic lymph node enlargement. GI TRACT: No dilation or bowel wall thickening. Appendix is normal. PELVIS/BLADDER: Bladder is decompressed. The uterus is unremarkable. VESSELS: Mild aortic atherosclerotic calcifications are seen. BONES AND SOFT TISSUES: No suspicious lytic or sclerotic bony lesions. [facility], Radiant Results Inft User - 06/27/2019 6:15 PM CDTCT ABDOMEN PELVIS WO CONTRASTHISTORY: 64 years-old; Female; Flank pain, stone disease suspected llq abdpain, radiating to back COMPARISON: NoneTECHNIQUE AND FINDINGS: Contiguous axial imaging from the level of the lungbases through the pubic symphysis was performed without the intravenousadministration of contrast. Coronal and sagittal reconstructions wereobtained. Auto mA and/or iterative reconstruction were used to reduceradiation dose.FINDINGS:LOWER THORAX: The lung bases are clear. No cardiomegaly.LIVER: No focal hepatic lesions. Normal contour.GALLBLADDER AND BILIARY TREE: No intra or extrahepatic biliary ductaldilation. No gallbladder wall thickening.SPLEEN: Multiple calcified granulomas are seen.PANCREAS: No ductal dilation or masses.ADRENAL GLANDS: No adrenal mass.KIDNEYS: Obstructing stone at the left ureterovesicular junction measuring4 mm (2:117) with resultant mild hydroureter and hydronephrosis.Enlargement of the left kidney is noted. There is perirenal andperiureteral fat stranding. No stone or hydronephrosis is noted in theright side.PERITONEUM AND RETROPERITONEUM: No free air or fluid collection.LYMPH NODES: No intra-abdominal or pelvic lymph node enlargement.GI TRACT: No dilation or bowel wall thickening. Appendix is normal.PELVIS/BLADDER: Bladder is decompressed. The uterus is unremarkable.VESSELS: Mild aortic atherosclerotic calcifications are seen.BONES AND SOFT TISSUES: No suspicious lytic or sclerotic bony lesions.IMPRESSIONObstructing stone at the left ureterovesical junction measuring 4 mm withresultant mild hydroureter and hydronephrosis.Enlargement of the left kidney with perirenal fat stranding as well asproximal periureteral inflammatory changes may be a sequela of theobstructing stone; however, an acute uncomplicated pyelonephritis isanother possibility if correlated with clinical and laboratory findings.Preliminary Report Dictated by Resident: Fernando Mclaughlin, Pinky Perez MD., have reviewed this study and agree with the abovereport.[facility]. METABOLIC PANEL (51025)2019-06-27 23:09:00 Test Item Value Reference Range Interpretation Comments NA (test code = 139 mmol/L 135-145 7295731237) K (test code = 4.7 mmol/L 3.5-5 0502592657) CL (test code = 101 mmol/L 98-108 6424026192) CO2 TOTAL (test code = 24 mmol/L 23-31 1985754361) AGAP (test code = 2-16 9350161980) BUN (test code = 26 mg/dL 7-23 H 8947388570) GLUCOSE (test code = 94 mg/dL 70-110 1115446441) CREATININE (test code = 1.24 mg/dL 0.5-1.04 H 3123862957) TOTAL BILI (test code = 0.2 mg/dL 0.1-1.6 7477282025) CALCIUM (test code = 10.3 mg/dL 8.6-10.6 2217359609) T PROTEIN (test code = 8.2 g/dL 6.3-8.2 4272805932) ALBUMIN (test code = 4.9 g/dL 3.5-5 3822714505) ALK PHOS (test code = 103 U/L 34-122 6931206815) ALTv (test code = 17 U/L 5-35 1742-6) AST(SGOT) (test code = 30 U/L 13-40 7365584329) eGFR Calculation mL/min/1.73m2 (Non-) (test code = 4632701670) eGFR Calculation mL/min/1.73m2 () (test code = 0836513694) TELMA (test code = TELMA) Association of Glomerular Filtration Rate (GFR) and Staging of Kidney Disease* + --+ --+ ------+| GFR (mL/min/1.73 m2) ?| With Kidney Damage ?| ?Without Kidney Damage+ --------+ --------+ +| ?>90 ?| ?Stage one ?| ? Normal ?+ ---+ ---+ -------+| ?60-89 ?| ?Stage two ?| ? Decreased GFR ? + --+ --+ ------+| ?30-59 ?| ?Stage three ?| ? Stage three ? + --+ --+ ------+| ?15-29 ?| ?Stage four ? | ? Stage four ?+ ---+ ---+ -------+| ?<15 (or dialysis) ? ?| ?Stage five ? | ? Stage five ?+ ---+ ---+ -------+ *Each stage assumes the associated GFR level has been in effect for at least three months. ?Stages 1 to 5, with or without kidney disease, indicate chronic kidney disease. Notes: Determination of stages one and two (with eGFR >59mL/min/1.73 m2) requires estimation of kidney damage for at least three months as defined by structural or functional abnormalities of the kidney, manifested by either:Pathological abnormalities or Markers of kidney damage (including abnormalities in the composition of the blood or urine or abnormalities in imaging tests). Lab Interpretation Abnormal (test code = 40978-4) [facility] WITH [id number] 22:56:00 Test Item Value Reference Range Interpretation Comments WBC (test code = See_Comment H [Automated 6690-2) message] The system which generated this result transmit julio reference range : 4.30 - 11.10 10*3/?L. The reference range was not used to interpret this result as normal/abnormal . RBC (test code = See_Comment L [Automated 789-8) message] The system which generated this result transmit julio reference range : 3.93 - 5.25 10*6/?L. The reference range was not used to interpret this result as normal/abnormal . HGB (test code = 11.9 g/dL 11.6-15 718-7) HCT (test code = 35.3 % 35.7-45.2 L 4544-3) MCV (test code = 97.2 fL 80.6-95.5 H 787-2) MCH (test code = 32.8 pg 25.9-32.8 785-6) MCHC (test code = 33.7 g/dL 31.6-35.1 786-4) RDW-SD (test code = 44.8 fL 39-49.9 89208-6) RDW-CV (test code = 12.5 % 12-15.5 788-0) PLT (test code = See_Comment [Automated 777-3) message] The system which generated this result transmit julio reference range : 166 - 358 10*3/ ?L. The reference range was not u sed to interpret th is result as normal/abnormal . MPV (test code = 10.2 fL 9.5-12.9 16401-0) NRBC/100 WBC (test See_Comment [Automat ed code = 4582327796) message] The system which generated this result transmit julio reference range : 0.0 - 10.0 /100 WBCs. The reference range was not used to interpret this result as normal/abnormal . NRBC x10^3 (test code <0.01 See_Comment [Auto mated = [id number]) message] The system which generated this result transmit julio reference range : 10*3/?L. The reference range was not used to interpret this result as normal/abnormal . GRAN MAT (NEUT) % 81.1 % (test code = 770-8) IMM GRAN % (test code 0.60 % = 0511820416) LYMPH % (test code = 7.8 % 736-9) MONO % (test code = 9.3 % 5905-5) EOS % (test code = 0.6 % 713-8) BASO % (test code = 0.6 % 706-2) GRAN MAT x10^3(ANC) 11.46 10*3/uL 1.88-7.09 H (test code = 4864039314) IMM GRAN x10^3 (test 0.09 10*3/uL 0-0.06 H code = 6390523725) LYMPH x10^3 (test code 1.11 10*3/uL 1.32-3.29 L = 731-0) MONO x10^3 (test code 1.32 10*3/uL 0.33-0.92 H = 742-7) EOS x10^3 (test code = 0.09 10*3/uL 0.03-0.39 711-2) BASO x10^3 (test code 0.08 10*3/uL 0.01-0.07 H = 704-7) Lab Interpretation Abnormal (test code = 86491-7) [facility] [id number] 22:05:00 Test Item Value Reference Range Interpretation Comments LACTIC ACID (test code = 1.83 mmol/L 0.3-2.6 [id number]) [facility] 1 [id number] 21:26:59HISTORY: Preop. FINDINGS: PA view of the chest showed normal appearance of thecardiomediastinal silhouette. Calcified granuloma in the left lung noted.No acute pneumonia, pleural effusion, pulmonary congestion detected. CONCLUSIONS: No acute cardiopulmonary disease. [facility], Radiant Results Inft User - 11/04/2018 4:27 PM CDTHISTORY: Preop.FINDINGS: PA view of the chest showed normal appearance of thecardiomediastinal silhouette. Calcified granuloma in the left lung noted.No acute pneumonia, pleural effusion, pulmonary congestion detected. CONCLUSIONS: No acute cardiopulmonary disease.[facility] WRIST <3 VW [id number] 20:31:57Displaced distal radius fracture [facility] 2 VW [id number] 07:23:55 Transverse fracture of the right distal radius with intra-articularextension. Minimal apex volar angulation, with 4 mm dorsal displacement of the distalfracture fragment. RL: 460 AFC: [id number] physician: LONG BOGGS INDICATION: Right forearm pain, injury COMPARISON: None FINDINGS: AP and lateral views of the right forearm. There is a transversefracture of the right distal radius with intra-articular extension. Thereis minimal apex volar angulation, with 4 mm dorsal displacement of thedistal fracture fragment. [facility], Radiant Results Inft User - 10/31/2018 2:26 AM CDTOrdering physician: LONG BOGGSINDICATION: Right forearm pain, injuryCOMPARISON: NoneFINDINGS: AP and lateral views of the right forearm. There is a transversefracture of the right distal radius with intra-articular extension. Thereis minimal apex volar angulation, with 4 mm dorsal displacement of thedistal fracture fragme nt.IMPRESSIONTransverse fracture of the right distal radius with intra- articularextension.Minimal apex volar angulation, with 4 mm dorsal displacement of the distalfracture fragment.RL: 460AFC: [id number] [facility]"
[2022-08-21] MEDS ORDERED: ONDANSETRON 4 MG/2 ML VIAL ONE (09:06)
[2022-08-21] MEDS ORDERED: KETOROLAC 30 MG/ML INJ ONE (09:06)
[2022-08-21] MEDS ORDERED: NA CHLORIDE 0.9% 1,000 ML ONE (09:06)
[2022-08-21] MEDS ORDERED: FAMOTIDINE 20 MG/2 ML VIAL IV ONE (09:06)
[2022-08-21 09:21] LABS: Absolute Lymphocytes (CBC) 1.4 K/uL (0.7-4.9); Hematocrit 36.4 % (36.0-45.0); Lymphocytes % 6.6 % (15.3-44.8); MCV 92.3 fL (80-100); MPV 8.3 fL (7.6-11.3); RBC Red Blood Cell Count 3.95 M/uL (3.86-4.86)
[2022-08-21 09:30] LABS: Specific Gravity 1.021 (1.005-1.030); Transitional Epithelial <5 /HPF (None Seen); Urine Bacteria 20-50 /HPF (<20); Urine Bilirubin NEGATIVE (Negative); Urine Blood Trace (Negative); Urine Clarity Extremely Turbid (Clear); Urine Color Yellow (Yellow); Urine Glucose NEGATIVE (Negative); Urine Mucus 1+ /HPF (None Seen); Urine Protein 2+ (Negative); Urine Urobilinogen Normal (Normal); Urine pH 5.5 (5.0-7.0)
[2022-08-21 09:38] LABS: Albumin 3.7 g/dL (3.4-5.0); Bilirubin Total 0.4 mg/dL (0.2-1.0); Protein, Total 8.5 g/dL (6.4-8.2)
[2022-08-21 09:57] LABS: Blood Morphology Comment NOT SEEN (NOT SEEN); Platelet Estimate ADEQ
--- NOTE | 2022-08-21 10:43 | RAD REPORT ---
EXAM DESCRIPTION: CT - Abdomen Pelvis W Contrast - 08/21/2022 10:06 am CLINICAL HISTORY: ABD PAIN COMPARISON: No comparisons TECHNIQUE: Thin cut axial CT imaging of the abdomen and pelvis was performed following intravenous a dministration of 75 mL Isovue 300. Multiplanar reformats were generated and reviewed. All CT scans are performed using dose optimization technique as appropriate and may include automated exposure control or mA/KV adjustment according to patient size. FINDINGS: No suspicious findings in the lung bases. 6 millimeter subpleural left lingular calcified granuloma, benign in appearance. The liver, spleen, and pancreas show no suspicious findings. Gallbladder and biliary tree are also wi thout suspicious finding. Symmetric renal function is seen with no hydronephrosis or suspicious renal mass. No dilated bowel loops or bowel wall thickening. Large bowel mucosal hyperenhancement and mild wall p rominence throughout, suggests infectious or inflammatory mild colitis, although nondistention somewh at limits evaluation. No free air, free fluid or inflammatory stranding. No hernia, mass or bulky lym phadenopathy. The urinary bladder is suboptimally distended, limiting evaluation. No suspicious bony findings. IMPRESSION: Suggestion of mild diffuse colitis. Nondistention somewhat limits evaluation. No other acute intra-abdominal process.
--- NOTE | 2022-08-21 10:50 | EDPHYS ---
Physician Documentation [facility] Name: Viri Caal Age: 67 yrs Sex: Female : 1955 Arrival Date: 08/21/2022 Time: 08:15 Bed 20 Private MD: ED Physician Lele Melendez HPI: 08/21 08:55 This 67 yrs old Female presents to ER via Wheelchair with complaints of Abdominal Pain, kb Nausea, Stool problem, Headache. 08:55 The patient presents with abdominal pain. Onset: The symptoms/episode began/occurred 3 kb day(s) ago. The symptoms do not radiate. Associated signs and symptoms: Pertinent positives: nausea, vomiting, and diarrhea. The symptoms are described as constant. Modifying factors: The symptoms are alleviated by nothing, the symptoms are aggravated by nothing. Severity of pain: At its worst the pain was moderate in the emergency department the pain is unchanged. The patient has not experienced similar symptoms in the past. The patient has been recently seen by a physician: teledoc visit yesterday. Pt reports abd bloating which led to dark stool then diarrhea. Has had a headache, decreased po intake due to vomiting, decreased urination, bodyaches. States her stool is normal in color now and has been for the last 2 days. Denies any bright red blood in stool or emesis. Denies fever. States she feels dehydrated. Pt and her had upper resp symptoms last week, had a negative covid test at that time and again yesterday. Historical: - Allergies: 08:27 No Known Allergies; ld1 - Home Meds: 08:27 losartan 25 mg oral tablet [Active]; ld1 - PMHx: 08:27 Depressive disorder; Hypertensive disorder; ld1 - PSHx: 08:27 None; ld1 - Immunization history:: Adult Immunizations up to date. - Social history:: Smoking status: Patient/guardian denies using tobacco, the patient reports quitting approximately 10 years ago. ROS: 08:40 Constitutional: Negative for fever, chills, and weight loss. kb 08:40 Constitutional: Positive for body aches. 08:40 Abdomen/GI: Positive for abdominal pain, nausea, vomiting, and diarrhea, black/tarry stool. 08:40 Neuro: Positive for headache. 08:40 All other systems are negative. Exam: 08:41 Head/Face: Normocephalic, atraumatic. ENT: Moist Mucous membranes Cardiovascular: kb Regular rate and rhythm with a normal S1 and S2. No gallops, murmurs, or rubs. No pulse deficits. Respiratory: Respirations even and unlabored. No increased work of breathing. Talking in full sentences Skin: Warm, dry with normal turgor. Normal color. MS/ Extremity: Pulses equal, no cyanosis. Neurovascular intact. Full, normal range of motion. Neuro: Awake and alert, GCS 15, oriented to person, place, time, and situation. Moves all extremities. Normal gait. 08:41 Constitutional: The patient appears alert, awake, uncomfortable. 08:41 Abdomen/GI: Inspection: abdomen appears normal, Bowel sounds: normal, Palpation: soft, in all quadrants, mild abdominal tenderness, in the left lower quadrant. Vital Signs: 08:32 BP 111 / 72; Pulse 112; Resp 18; Temp 97.9(O); Pulse Ox 99% on R/A; Weight 62.6 kg; ld1 Height 5 ft. 6 in. ; Pain 8/10; 09:00 BP 125 / 74; Pulse 97; Resp 16; Pulse Ox 98% on R/A; db 09:30 BP 125 / 66; Pulse 95; Resp 16; Pulse Ox 98% on R/A; db 11:10 BP 132 / 72; Pulse 97; Resp 16; Pulse Ox 99% on R/A; db 12:00 BP 133 / 79; Pulse 92; Resp 16; Pulse Ox 99% on R/A; db 13:00 BP 124 / 90; Pulse 98; Resp 16; Pulse Ox 100% on R/A; db 08:32 Body Mass Index 22.27 (62.60 kg, 167.64 cm) ld1 08:32 Pain Scale: Adult ld1 MDM: 08:19 Patient medically screened. kb 08:55 Data reviewed: vital signs, nurses notes. kb 10:48 Differential diagnosis: diverticulitis, gastritis, non-specific abd pain, flu, colitis, kb dehydration, electrolyte imbalance, renal failure. Consideration of Admission/Observation Patient was admitted/placed on observation. Historians other than the Patient: Spouse/Significant Other: . Counseling: I had a detailed discussion with the patient and/or guardian regarding: the historical points, exam findings, and any diagnostic results supporting the discharge/admit diagnosis, lab results, radiology results, the need for further work-up and treatment in the hospital. 10:50 Management of patient was discussed with the following: Hospitalist: ROSIE Castañeda accepts kb pt for admission under Dr Crespo. 08/21 08:31 Order name: CBC with Diff; Complete Time: 10:08 kb 08/21 08:31 Order name: CMP; Complete Time: 09:39 kb 08/21 08:31 Order name: Lipase; Complete Time: 09:39 kb 08/21 08:31 Order name: Urinalysis w/ reflexes; Complete Time: 09:32 kb 08/21 08:31 Order name: Flu; Complete Time: 09:39 kb 08/21 09:24 Order name: Manual Differential; Complete Time: 10:08 EDPR 08/21 11:46 Order name: Blood Culture EDPR 08/21 11:51 Order name: Magnesium; Complete Time: 12:43 EDPR 08/21 11:51 Order name: Phosphorus; Complete Time: 12:43 EDPR 08/21 11:51 Order name: Urinalysis w/ reflexes EDPR 08/21 11:51 Order name: Basic Metabolic Panel EDPR 08/21 11:51 Order name: Basic Metabolic Panel EDPR 08/21 11:51 Order name: CBC with Automated Diff EDPR 08/21 11:51 Order name: CBC with Automated Diff EDPR 08/21 12:42 Order name: LAB Add On eb 08/21 12:55 Order name: Blood Culture* ss 08/21 14:11 Order name: Hemoglobin; Complete Time: 14:11 EDPR 08/21 14:11 Order name: Hematocrit; Complete Time: 14:11 EDPR 08/21 14:22 Order name: Basic Metabolic Panel EDPR 08/21 08:31 Order name: CT Abd/Pelvis - IV Contrast Only; Complete Time: 10:44 kb 08/21 11:51 Order name: Clear Liquid EDPR 08/21 11:51 Order name: CONS Physician Consult EDPR 08/21 08:31 Order name: IV Saline Lock; Complete Time: 09:13 kb 08/21 08:31 Order name: Labs collected and sent; Complete Time: 09:13 kb Administered Medications: 09:03 Drug: NS 0.9% IV 1000 ml Route: IV; Rate: 1 bolus; Site: right antecubital; db 11:00 Follow up: IV Status: Completed infusion; IV Intake: 1000ml db 09:05 Drug: Ondansetron IVP 4 mg Route: IVP; Site: right antecubital; db 14:23 Follow up: Response: No adverse reaction db 09:07 Drug: TORadol - Ketorolac IVP 15 mg Route: IVP; Site: right antecubital; db 14:23 Follow up: Response: No adverse reaction db 09:08 Drug: Famotidine IVP 20 mg Route: IVP; Site: right antecubital; db 14:23 Follow up: Response: No adverse reaction db 11:27 Drug: Potassium Chloride PO 40 mEq Route: PO; db 14:22 Follow up: Response: No adverse reaction db 11:52 Drug: metroNIDAZOLE IVPB 500 mg Volume: 100 ml; Route: IVPB; Rate: 200 ml/hr; Infused db Over: 30 mins; Site: right antecubital; 12:55 Follow up: Response: No adverse reaction; IV Status: Completed infusion; IV Intake: db 100ml 12:10 Drug: Ciprofloxacin IVPB 400 mg Volume: 200 ml; Route: IVPB; Infused Over: 60 mins; db Site: left antecubital; 13:15 Follow up: Response: No adverse reaction; IV Status: Completed infusion; IV Intake: db 200ml Disposition: 18:17 Co-signature as Attending Physician, Lele Melendez DO I was immediately available on-site ms3 in the Emergency Department for consultation in the care of the patient. Disposition Summary: 08/21/22 10:50 Hospitalization Ordered Hospitalization Status: Inpatient Admission kb Provider: Richard [facility]respo [facility] Condition: Stable kb Problem: new kb Symptoms: are unchanged kb Bed/Room Type: Standard Room Assignment: 205(08/21/22 13:12) eb Diagnosis - colitis kb - Acute kidney failure, unspecified kb - Elevated white blood cell count kb - Hypokalemia kb Forms: - Medication Reconciliation Form kb - SBAR form kb Signatures: Dispatcher [employer] EDYadira Magdaleno, NITA TRAVIS-Mary Louise Marcus, DO DO ms3 Blanca Melendez RN RN ld1 Eva Alvarado RN RN db Corrections: (The following items were deleted from the chart) 13:12 10:50 kb eb
--- NOTE | 2022-08-21 10:50 | ER ---
Nurse's Notes [facility] Name: Viri Caal Age: 67 yrs Sex: Female : 1955 Arrival Date: 08/21/2022 Time: 08:15 Bed 20 Private MD: Diagnosis: colitis;Acute kidney failure, unspecified;Elevated white blood cell count;Hypokalemia Presentation: 08/21 08:25 Chief complaint: Patient states: abd bloating for 3 days, then diarrhea and vomiting, ld1 unable to tolerate po intake. Headache, as well. States she feels very dehydrated. Decreased urination. Coronavirus screen: Vaccine status: Patient reports receiving the 2nd dose of the covid vaccine. Ebola Screen: Patient negative for fever greater than or equal to 101.5 degrees Fahrenheit, and additional compatible Ebola Virus Disease symptoms Patient denies exposure to infectious person. Patient denies travel to an Ebola-affected area in the 21 days before illness onset. No symptoms or risks identified at this time. Risk Assessment: Do you want to hurt yourself or someone else? Patient reports no desire to harm self or others. Onset of symptoms was August 18, 2022. 08:25 Method Of Arrival: Wheelchair ld1 08:25 Acuity: CARLOS 3 ld1 14:11 Initial Sepsis Screen: Does the patient meet any 2 criteria? No. Patient's initial db sepsis screen is negative. Does the patient have a suspected source of infection? No. Patient's initial sepsis screen is negative. Triage Assessment: 08:26 General: Appears uncomfortable, Behavior is cooperative. Pain: Complains of pain in ld1 entire body. GI: Reports lower abdominal pain, upper abdominal pain, diarrhea, nausea, vomiting. Historical: - Allergies: 08:27 No Known Allergies; ld1 - Home Meds: 08:27 losartan 25 mg oral tablet [Active]; ld1 - PMHx: 08:27 Depressive disorder; Hypertensive disorder; ld1 - PSHx: 08:27 None; ld1 - Immunization history:: Adult Immunizations up to date. - Social history:: Smoking status: Patient/guardian denies using tobacco, the patient reports quitting approximately 10 years ago. Screenin:24 [facility] ED Fall Risk Assessment (Adult) History of falling in the last 3 months, db including since admission No falls in past 3 months (0 pts) Confusion or Disorientation No (0 pts) Intoxicated or Sedated No (0 pts) Impaired Gait No (0 pts) Mobility Assist Device Used No (0 pt) Altered Elimination No (0 pt) Score/Fall Risk Level 0 - 2 = Low Risk Oriented to surroundings, Maintained a safe environment. Abuse screen: Denies threats or abuse. Denies injuries from another. Nutritional screening: No deficits noted. Tuberculosis screening: No symptoms or risk factors identified. Assessment: 09:13 Reassessment: Patient appears in no apparent distress at this time. Patient and/or db family updated on plan of care and expected duration. Pain level reassessed. Patient is alert, oriented x 3, equal unlabored respirations, skin warm/dry/pink. sent for N/V. General: Appears in no apparent distress. comfortable, Behavior is calm, cooperative. Pain: Complains of pain in abdomen. Neuro: Level of Consciousness is awake, alert, obeys commands, Oriented to person, place, time, situation, Speech is normal. Respiratory: Airway is patent Respiratory effort is even, unlabored, Respiratory pattern is regular, symmetrical. GI: Abdomen is flat, non-distended, Bowel sounds present X 4 quads. Abd is soft. 10:15 Reassessment: patient returned to room from CT. db 11:15 Reassessment: hospitalist IDENTIFIER HORSE at patient bedside. db 12:58 Reassessment: patient ambulatory to restroom. db 13:38 Reassessment: Patient appears in no apparent distress at this time. Patient and/or db family updated on plan of care and expected duration. Pain level reassessed. Patient is alert, oriented x 3, equal unlabored respirations, skin warm/dry/pink. Report given to SYDNI Teran on 2nd floor. 14:10 Reassessment: Patient appears in no apparent distress at this time. Patient and/or db family updated on plan of care and expected duration. Pain level reassessed. Patient is alert, oriented x 3, equal unlabored respirations, skin warm/dry/pink. Vital Signs: 08:32 BP 111 / 72; Pulse 112; Resp 18; Temp 97.9(O); Pulse Ox 99% on R/A; Weight 62.6 kg; ld1 Height 5 ft. 6 in. ; Pain 8/10; 09:00 BP 125 / 74; Pulse 97; Resp 16; Pulse Ox 98% on R/A; db 09:30 BP 125 / 66; Pulse 95; Resp 16; Pulse Ox 98% on R/A; db 11:10 BP 132 / 72; Pulse 97; Resp 16; Pulse Ox 99% on R/A; db 12:00 BP 133 / 79; Pulse 92; Resp 16; Pulse Ox 99% on R/A; db 13:00 BP 124 / 90; Pulse 98; Resp 16; Pulse Ox 100% on R/A; db 08:32 Body Mass Index 22.27 (62.60 kg, 167.64 cm) ld1 08:32 Pain Scale: Adult ld1 ED Course: 08:16 Patient arrived in ED. am2 08:19 Yadira Torres FNP-C is PHCP. kb 08:19 Lele Melendez DO is Attending Physician. kb 08:26 Triage completed. ld1 08:26 Arm band placed on right wrist. ld1 08:52 Eva Alvarado, SYDNI is Primary Nurse. db 09:03 Inserted saline lock: 20 gauge in right antecubital area, using aseptic technique. db Blood collected. 10:08 CT Abd/Pelvis - IV Contrast Only In Process Unspecified. EDMS 10:26 Patient has correct armband on for positive identification. Bed in low position. Call db light in reach. Side rails up X 1. 10:50 Richard Crespo MD is Hospitalizing Provider. kb 11:35 Inserted saline lock: 20 gauge in left antecubital area, using aseptic technique. Blood db collected. 11:35 First set of blood cultures drawn by me. db 11:50 Second set of blood cultures drawn by me. db 14:10 No provider procedures requiring assistance completed. Patient admitted, IV remains in db place. Administered Medications: 09:03 Drug: NS 0.9% IV 1000 ml Route: IV; Rate: 1 bolus; Site: right antecubital; db 11:00 Follow up: IV Status: Completed infusion; IV Intake: 1000ml db 09:05 Drug: Ondansetron IVP 4 mg Route: IVP; Site: right antecubital; db 14:23 Follow up: Response: No adverse reaction db 09:07 Drug: TORadol - Ketorolac IVP 15 mg Route: IVP; Site: right antecubital; db 14:23 Follow up: Response: No adverse reaction db 09:08 Drug: Famotidine IVP 20 mg Route: IVP; Site: right antecubital; db 14:23 Follow up: Response: No adverse reaction db 11:27 Drug: Potassium Chloride PO 40 mEq Route: PO; db 14:22 Follow up: Response: No adverse reaction db 11:52 Drug: metroNIDAZOLE IVPB 500 mg Volume: 100 ml; Route: IVPB; Rate: 200 ml/hr; Infused db Over: 30 mins; Site: right antecubital; 12:55 Follow up: Response: No adverse reaction; IV Status: Completed infusion; IV Intake: db 100ml 12:10 Drug: Ciprofloxacin IVPB 400 mg Volume: 200 ml; Route: IVPB; Infused Over: 60 mins; db Site: left antecubital; 13:15 Follow up: Response: No adverse reaction; IV Status: Completed infusion; IV Intake: db 200ml Medication: 14:10 VIS not applicable for this client. db Intake: 11:00 IV: 1000ml; Total: 1000ml. db 12:55 IV: 100ml; Total: 1100ml. db 13:15 IV: 200ml; Total: 1300ml. db Outcome: 10:50 Decision to Hospitalize by Provider. kb 14:10 Admitted to ER Hold. Please see [facility] for further documentation. db 14:10 Condition: stable 14:10 Instructed on the need for admit. 14:23 Patient left the ED. db Signatures: Dispatcher [employer] Yadira Hoyt, NITA TRAVIS-Senia Benavides am2 Blanca Melendez RN RN ld1 Eva Alvarado RN RN db
[2022-08-21] MEDS ORDERED: METRONIDAZOLE 500mg IVPB 500 MG/100 ML BAG IV ONE (11:30)
[2022-08-21] MEDS ORDERED: POTASSIUM CL SA 10 MEQ TAB PO ONE ×3 (11:30→17:28)
[2022-08-21] MEDS ORDERED: CIPROFLOXACIN 400mg IV 400 MG/200 ML BAG IV ONE (11:30)
[2022-08-21] MEDS ORDERED: ACETAMINOPHEN 325 MG TABLET PO PRN (11:46)
[2022-08-21 12:41] LABS: Magnesium 2.1 mg/dL (1.6-2.4); Phosphorus 3.5 mg/dL (2.5-4.9)
--- NOTE | 2022-08-21 13:19 | P.HP ---
Certification for Inpatient Patient admitted to: Inpatient With expected LOS: >2 Midnights Patient will require the following post-hospital care: None Practitioner: I am a practitioner with admitting privileges, knowledge of patient current condition, hospital course, and medical plan of care. Services: Services provided to patient in accordance with Admission requirements found in Title 42 Section 412.3 of the Code of Federal Regulations Patient History Date of Service: 08/21/22 History of Present Illness: Patient is a 67-year-old female with a past medical history significant for hypertension, hyperlipidemia, depression who presents with complaint of abdominal bloating/pain that has been ongoing for the past 3 days. Patient reported abdominal pain is located in the lower quadrants. Patient reported that she took some Pepto-Bismol but did not experience any improvement in symptoms. Patient rated pain as 8/10 in severity and described pain as aching in quality. Patient reported that she has not been able to tolerate any p.o. intake. Patient reported associated signs and symptoms of nausea, vomiting, diarrhea, dark stools, fatigue, weakness, headache, and generalized malaise. Patient denies any other signs and symptoms. Symptoms are aggravated or relieved by nothing. Patient decided to present to the hospital due to worsening symptoms. Allergies No Known Allergies Allergy (Verified 08/21/22 14:25) Home Medications: Atorvastatin Calcium [Lipitor] 10 mg PO BEDTIME 08/21/22 Losartan Potassium 100 mg PO 08/21/22 Venlafaxine HCl [Venlafaxine HCl ER] 150 mg PO 08/21/22 - Past Medical/Surgical History Past Medical History: Reviewed- Non-Contributory Past Surgical History: Reviewed- Non-Contributory - Social History Smoking Status: Former smoker Alcohol use: Yes CD- Drugs: No Caffeine use: Yes Place of Residence: Home Review of Systems General: Weakness, Malaise, Other (fatigue ) Eyes: Unremarkable ENT: Unremarkable Respiratory: Unremarkable Cardiovascular: Unremarkable Gastrointestinal: Nausea, Vomiting, Abdominal Pain, Distention, Melena Genitourinary: Unremarkable Musculoskeletal: Unremarkable Integumentary: Unremarkable Neurological: Weakness, Other ([place]) Lymphatics: Unremarkable Physical Examination - Physical Exam General: Alert, In no apparent distress, Oriented x3 HEENT: Atraumatic, PERRLA, Mucous membr. moist/pink, EOMI, Sclerae nonicteric Neck: Supple, 2+ carotid pulse no bruit, No LAD, Without JVD or thyroid abnormality Respiratory: Clear to auscultation bilaterally, Normal air movement Cardiovascular: No edema, Regular rate/rhythm, Normal S1 S2 Capillary refill: <2 Seconds Gastrointestinal: Normal bowel sounds, Distended, Tenderness Musculoskeletal: No clubbing, No swelling, No tenderness Integumentary: No rashes Neurological: Normal speech, Normal strength at 5/5 x4 extr, Normal tone, Normal affect Lymphatics: No axilla or inguinal lymphadenopathy - Studies Laboratory Data (last 24 hrs) 08/21/22 09:03: Phosphorus 3.5, Magnesium 2.1 08/21/22 09:03: Sodium 134 L, Potassium 3.0 L, BUN 19 H, Creatinine 1.41 H, Glucose 122 H, Total Bilirubin 0.4, AST 12 L, ALT 21, Alkaline Phosphatase 100, Lipase 27 08/21/22 09:03: WBC 20.80 H, Hgb 11.9 L, Hct 36.4, Plt Count 252 Microbiology Data (last 24 hrs): 08/21/22 09:03 Nasopharnyx Influenza Type A Antigen Screen - Final 08/21/22 09:03 Nasopharnyx Influenza Type B Antigen Screen - Final Assessment and Plan - Plan --Colitis. CT abdomen indicates Suggestion of mild diffuse colitis. Patient placed on antibiotics. Continue IV hydration. -- GI bleed. Patient reports episode of dark stool in the last 3 days. Gastroenterology consulted. Hemoglobin trending down. Currently 10.0. We will continue to monitor H&H and transfuse if hemoglobin less than 7.0. Patient placed on Protonix. We will await further recommendations from public works commissioner. -- NEDA. Baseline functions unknown. NEDA likely prerenal secondary to poor p.o. intake and fluid losses. Continue IV hydration. Renal functions improving. Will hold off on ARBs. We will avoid nephrotoxins. We will continue to monitor renal functions. --Nausea and vomiting. Antiemetics on board. Continue IV hydration. --Diarrhea. Stool studies pending to rule out any infectious process. Patient reported that her last episode was in AM. Continue IV hydration and supportive care. --Depression. Continue home medication. --Leukocytosis. Likely secondary to colitis. Blood cultures pending. Continue antibiotics. --Hyperlipidemia. Continue statin -- DVT prophylaxis with SCDs. Discharge Plan: Home Plan to discharge in: Greater than 2 days - Advance Directives Does patient have a Living Will: No Does patient have a Durable POA for Healthcare: No - Code Status/Comfort Care Code Status Assessed: Yes Comfort Measures: Palliative Care Physician Review: Patient Assessed, Agree with Above Assessment and Plan Critical Care: No
[2022-08-21 14:21] LABS: Potassium 3.3 mEq/L (3.5-5.1)
[2022-08-21 14:40] VITALS: BMI 22.2
[2022-08-21] MEDS: NA CHLORIDE 0.9% 1,000 ML IV SCH ×2 (14:43→22:03)
[2022-08-21] MEDS: METRONIDAZOLE 500mg IVPB 500 MG/100 ML BAG IV SCH (16:16)
[2022-08-21] MEDS: CIPROFLOXACIN 400mg IV 400 MG/200 ML BAG IV SCH (19:38)
[2022-08-21] MEDS: ATORVASTATIN 10 MG TAB PO SCH (19:43)
[2022-08-21] MEDS: ONDANSETRON 4 MG/2 ML VIAL IV PRN (20:57)
[2022-08-21] MEDS ORDERED: HOME MED 1 EA UNK (Venlafaxine Hcl [Venlafaxine Hcl Er] 150 MG Cap.Er.24h) PO SCH (21:00)
[2022-08-21] MEDS: MELATONIN 5 MG TABLET PO PRN (22:28)
[2022-08-22] MEDS: HYDROCODONE/APAP 5/325 MG TAB PO PRN ×2 (00:46→20:38)
[2022-08-22] MEDS: METRONIDAZOLE 500mg IVPB 500 MG/100 ML BAG IV SCH ×3 (00:46→17:46)
[2022-08-22 02:26] LABS: Absolute Lymphocytes (CBC) 1.7 K/uL (0.7-4.9); Hematocrit 28.6 % (36.0-45.0); Lymphocytes % 11.2 % (15.3-44.8); MCV 92.6 fL (80-100); MPV 8.4 fL (7.6-11.3); RBC Red Blood Cell Count 3.09 M/uL (3.86-4.86)
[2022-08-22 02:35] LABS: ALT/SGPT 15 U/L (13-56); AST/SGOT 8 U/L (15-37); Albumin 2.8 g/dL (3.4-5.0); Alkaline Phosphatase 74 U/L (45-117); BUN Blood Urea Nitrogen 18 mg/dL (7-18); Bicarbonate 19 mEq/L (21-32); Bilirubin Total 0.2 mg/dL (0.2-1.0); Glomerular Filtration Rate 61 ml/min (=/>90); Glucose Level 111 mg/dL (74-106); Protein, Total 6.8 g/dL (6.4-8.2); Sodium Level 138 mEq/L (136-145)
[2022-08-22 02:36] LABS: Bilirubin Direct < 0.1 mg/dL (0-0.2); Bilirubin Indirect, Calculated ND mg/dL (0.2-0.8)
[2022-08-22] MEDS: NA CHLORIDE 0.9% 1,000 ML IV SCH ×2 (02:52→08:03)
[2022-08-22 03:39] LABS: C.diff Antigen/Toxin Ag neg : Tox neg (NEG : NEG)
--- NOTE | 2022-08-22 07:13 | P.PN ---
Date of Service: 08/22/22 Subjective: doesn't feel well; ~same as yesterday watery diarrhea (no obvious blood noted), +nausea today mild lower abdominal soreness ~unchanged UOP improving ROS: 10 point ROS as noted above, otherwise negative Physical Exam: GEN: Alert, oriented, NAD HEENT: Normal conjunctiva, sclera anicteric CV: Regular rate and rhythm, no edema Pulm: Nonlabored respirations on room air, clear bilaterally ABD: Soft, mild abdominal discomfort/soreness, slightly more on R-side MSK: No joint tenderness Integumentary: No rashes Neuro: Normal speech, normal affect vitals reviewed Problem List: Colitis, acute GI bleed NEDA Depression Hyperlipidemia Colitis, acute GI bleed Patient reports episode of dark stool in the last 3 days. Patient also reports nausea/vomiting/diarrhea CT abdomen (08/21): Suggestion of mild diffuse colitis Blood cultures (08/21): pending Stool studies (08/21): pending Continue Cipro and flagyl (08/21-) Continue IVF Leukocytosis improving, +afebrile hgb downtrending. 11.9 (08/21) -> 9.2 (08/22) denies any further dark stools, no bleeding recheck h/h this afternoon monitor H&H and transfuse if hgb < 7 Continue Protonix. Antiemetics on board. NEDA. Baseline functions unknown. continue to monitor renal function Continue IVF improving Depression Continue home medication. Hyperlipidemia Continue statin VTE: SCD Code: Full Dispo: Home ~1-2 days further improvement of H&H, afebrile >24, improvement of diarrhea
[2022-08-22] MEDS: ONDANSETRON 4 MG/2 ML VIAL IV PRN ×2 (09:50→19:33)
[2022-08-22] MEDS: VENLAFAXINE HCL XR 75 MG CAP PO SCH (09:54)
[2022-08-22] MEDS: CIPROFLOXACIN 400mg IV 400 MG/200 ML BAG IV SCH ×2 (09:54→20:30)
[2022-08-22] MEDS: HYDRALAZINE HCL 20 MG/ML VIAL IV PRN ×2 (11:25→17:46)
[2022-08-22 17:33] LABS: Hematocrit 33.3 % (36.0-45.0)
[2022-08-22] MEDS ORDERED: MORPHINE 2 MG/ML SYR IV ONE (19:02)
--- NOTE | 2022-08-22 19:09 | RAD REPORT ---
EXAM DESCRIPTION: US - Abdomen Exam Limited - 08/22/2022 4:43 pm CLINICAL HISTORY: right upper quadrant pain COMPARISON: Abdomen Pelvis W Contrast dated 08/21/2022 TECHNIQUE Sonographic grayscale and color flow images of the right upper abdominal quadrant were obt ained. FINDINGS: The gallbladder demonstrates no gallstones. No pericholecystic fluid or gallbladder wall t hickening. The common bile duct is normal measuring 3 mm. The liver demonstrates no findings of intrahepatic biliary dilatation. IMPRESSION: Normal right upper quadrant ultrasound.
--- NOTE | 2022-08-22 19:24 | RAD REPORT ---
EXAM DESCRIPTION: RAD - Abdomen 1 View (KUB) - 08/22/2022 3:49 pm CLINICAL HISTORY: evaluate gas and distention COMPARISON: Abdomen Pelvis W Contrast dated 08/21/2022 TECHNIQUE: Single AP view of the abdomen. FINDINGS: Nonobstructive bowel gas pattern in the included abdomen. No air-fluid levels, free air, o r pneumatosis. No suspicious calcifications. No significant bony abnormality. Visualized lower aspects of the lungs are unremarkable. IMPRESSION: No acute abnormalities in the abdomen.
[2022-08-22] MEDS: ATORVASTATIN 10 MG TAB PO SCH (20:37)
[2022-08-22] MEDS: MELATONIN 5 MG TABLET PO PRN (20:38)
[2022-08-22] MEDS ORDERED: LABETALOL 20 MG/4ML SYRINGE IV ONE (20:49)
[2022-08-23] MEDS: METRONIDAZOLE 500mg IVPB 500 MG/100 ML BAG IV SCH ×4 (00:02→17:28)
[2022-08-23] MEDS: NA CHLORIDE 0.9% 1,000 ML IV SCH ×2 (00:02→04:03)
[2022-08-23 06:42] LABS: Absolute Lymphocytes (CBC) 1.6 K/uL (0.7-4.9); Hematocrit 27.4 % (36.0-45.0); Lymphocytes % 19.7 % (15.3-44.8); MCV 91.3 fL (80-100); MPV 8.4 fL (7.6-11.3)
--- NOTE | 2022-08-23 06:47 | P.PN ---
Date of Service: 08/23/22 Subjective: feeling much better today no new / worsening problems appetite improving, wanting to eat tolerated some sips afebrile ROS: 10 point ROS as noted above, otherwise negative Physical Exam: GEN: Alert, oriented, NAD HEENT: Normal conjunctiva, sclera anicteric CV: Regular rate and rhythm, no edema Pulm: Nonlabored respirations on room air, clear bilaterally ABD: Soft, mild abdominal discomfort/soreness, non-distended Neuro: Normal speech, normal affect vitals reviewed Problem List: Colitis, acute GI bleed, suspected NEDA, resolved Depression Hyperlipidemia Colitis, acute GI bleed, suspected Patient reports episode of dark stool in the last 3 days. Patient also reports nausea/vomiting/diarrhea suspect mild gi bleed in setting of colitis CT abdomen (08/21): Suggestion of mild diffuse colitis Blood cultures (08/21): NGTD Cipro and flagyl (08/21-) Leukocytosis resolved, afebrile decrease IVF clear liquids - advance as tolerated discussed ~2 days of full liquids and start incorporating soft food daily Dietitian consulted for food planning/recommendations hgb down 10.7 -> 9.3 (08/23) denies any further dark stools, no bleeding monitor H&H and transfuse if hgb < 7 Continue Protonix. Antiemetics on board. NEDA. secondary to dehydration / prerenal improved /resolved with IVF Continue IVF Depression Continue home medication Hyperlipidemia Continue statin VTE: SCD given suspected gi bleed Code: Full Dispo: Home ~1-2 days pending advancement of diet
[2022-08-23 07:01] LABS: Albumin 2.9 g/dL (3.4-5.0); Bilirubin Total 0.2 mg/dL (0.2-1.0); Magnesium 1.7 mg/dL (1.6-2.4); Potassium 3.5 mEq/L (3.5-5.1); Protein, Total 6.5 g/dL (6.4-8.2)
[2022-08-23] MEDS ORDERED: KCL 20 MEQ/100 mL IVPB 20 MEQ/100 ML BAG IV SCH (08:00)
[2022-08-23] MEDS ORDERED: MAGNESIUM SULFATE 1 gm IVPB 1 GM/100 ML BAG IV ONE (08:00)
[2022-08-23 08:28] LABS: Blood Morphology Comment NOT SEEN (NOT SEEN); Platelet Estimate ADEQ; White Blood Cell Scan OK (OK)
[2022-08-23] MEDS: CIPROFLOXACIN 400mg IV 400 MG/200 ML BAG IV SCH ×2 (09:50→21:33)
[2022-08-23] MEDS: VENLAFAXINE HCL XR 75 MG CAP PO SCH (09:52)
[2022-08-23] MEDS: ONDANSETRON 4 MG/2 ML VIAL IV PRN ×2 (15:02→21:33)
[2022-08-23] MEDS: HYDRALAZINE HCL 20 MG/ML VIAL IV PRN (17:28)
[2022-08-23 17:55] VITALS: O2SAT 98
[2022-08-23] MEDS ORDERED: LABETALOL 20 MG/4ML SYRINGE IV ONE (19:37)
[2022-08-23] MEDS: ATORVASTATIN 10 MG TAB PO SCH (20:00)
[2022-08-23] MEDS: HYDROCODONE/APAP 5/325 MG TAB PO PRN (21:33)
[2022-08-23] MEDS: MELATONIN 5 MG TABLET PO PRN (22:44)
[2022-08-24] MEDS: METRONIDAZOLE 500mg IVPB 500 MG/100 ML BAG IV SCH ×3 (01:00→17:08)
[2022-08-24 06:30] LABS: Absolute Lymphocytes (CBC) 1.8 K/uL (0.7-4.9); Hematocrit 34.3 % (36.0-45.0); Lymphocytes % 17.9 % (15.3-44.8); MCV 91.2 fL (80-100); MPV 8.5 fL (7.6-11.3); RBC Red Blood Cell Count 3.76 M/uL (3.86-4.86)
--- NOTE | 2022-08-24 06:47 | P.PN ---
Date of Service: 08/24/22 Subjective: Feeling better today vomiting after lunch yesterday, +overnight; tolerating liquids today no BM, no flatus, minimal nausea afebrile ROS: 10 point ROS as noted above, otherwise negative Physical Exam: GEN: Alert, oriented, NAD HEENT: Normal conjunctiva, sclera anicteric CV: Regular rate and rhythm, no edema Pulm: Nonlabored respirations on room air, clear bilaterally ABD: Soft, mild abdominal discomfort/soreness, non-distended Neuro: Normal speech, normal affect vitals reviewed Problem List: Colitis, acute GI bleed, suspected NEDA, resolved Depression Hyperlipidemia Colitis, acute GI bleed, suspected Patient reports episode of dark stool in the last 3 days prior to admission. Patient also reports nausea/vomiting/diarrhea Hgb stable, no bleeding during hospitalization suspect had mild gi bleed in setting of colitis CT abdomen (08/21): Suggestion of mild diffuse colitis Blood cultures (08/21): NGTD Cipro and flagyl (08/21-) Leukocytosis resolved, afebrile DC IVF Full liquids episode of vomiting overnight, tolerating sips today Dietitian consulted for food planning/recommendations hgb improving (11.3) denies any further dark stools, no bleeding monitor H&H and transfuse if hgb < 7 Continue Protonix. Antiemetics on board. NEDA. secondary to dehydration / prerenal improved /resolved with IVF IVF DCd Depression Continue home medication Hyperlipidemia Continue statin VTE: SCD given suspected gi bleed Code: Full Dispo: Home ~1 days pending advancement of diet
[2022-08-24 07:03] LABS: Albumin 3.7 g/dL (3.4-5.0); Bilirubin Total 0.2 mg/dL (0.2-1.0); Magnesium 1.9 mg/dL (1.6-2.4); Potassium 3.3 mEq/L (3.5-5.1); Protein, Total 8.1 g/dL (6.4-8.2)
[2022-08-24 09:29] LABS: Blood Morphology Comment NOT SEEN (NOT SEEN); Platelet Estimate ADEQ
[2022-08-24] MEDS: CIPROFLOXACIN 400mg IV 400 MG/200 ML BAG IV SCH ×2 (09:47→21:29)
[2022-08-24] MEDS: LOSARTAN POTASSIUM 50 MG TABLET PO SCH (09:47)
[2022-08-24] MEDS: VENLAFAXINE HCL XR 75 MG CAP PO SCH (09:47)
[2022-08-24] MEDS: KCL 20 MEQ/100 mL IVPB 20 MEQ/100 ML BAG IV SCH ×2 (10:42→14:53)
[2022-08-24] MEDS ORDERED: NA CHLORIDE 0.9% 100 ML ONE (14:32)
[2022-08-24] MEDS: HYDRALAZINE HCL 20 MG/ML VIAL IV PRN ×2 (14:53→21:23)
--- NOTE | 2022-08-24 14:58 | P.DS ---
Admission Date: 08/21/22 Discharge Date: 08/25/22 Disposition: ROUTINE DISCHARGE Discharge Condition: GOOD Consultations: GI - Dr. Moreno Brief History of Present Illness: 67 yo F, PMH: hypertension, hyperlipidemia, depression Patient who presents with complaint of abdominal bloating/pain that has been ongoing for the past 3 days. Patient reported abdominal pain is located in the lower quadrants. Patient reported that she took some Pepto-Bismol but did not experience any improvement in symptoms. Patient rated pain as 8/10 in severity and described pain as aching in quality. Patient reported that she has not been able to tolerate any p.o. intake. Patient reported associated signs and symptoms of nausea, vomiting, diarrhea, dark stools, fatigue, weakness, headache, and generalized malaise. Patient denies any other signs and symptoms. Symptoms are aggravated or relieved by nothing. Hospital Course: Problem List: Colitis, acute GI bleed, suspected NEDA, resolved Depression Hyperlipidemia Patient presented with abdominal pain, nausea, and reported dark/black stools. CT showed evidence of diffuse colitis. GI, Dr. Moreno, was consulted. Her symptoms were felt to be secondary to infectious colitis. She had gradual improvement of her symptoms with bowel rest, IV fluids, and antibiotics. Her hemoglobin remained stable there is no evidence of bleed. Her losartan was initially held due to her NEDA. Renal function (NEDA) improved back to her normal levels with IV hydration. She was advanced to a full liquid diet which she was tolerating. Dietitian was consulted to discuss food options over the next week or so. Discussed slowly incorporating more soft/regular food over the course of the next 1-2 weeks. No EGD/colonoscopy was warranted during this hospitalization. Dr. Moreno recommended patient follow-up in the office in the next few weeks, and she will need a colonoscopy in 4-6 weeks. Continue home medications as previously prescribed New prescriptions on discharge: Ciprofloxacin and metronidazole for 10 days, to complete ~2-week total course Zofran, as needed if develops nausea Follow-up: PCP within [address] Tiffanie GUERRA, ~2-3 weeks Physical Exam: GEN: Alert, oriented, NAD HEENT: Normal conjunctiva, sclera anicteric CV: Regular rate and rhythm, no edema Pulm: Nonlabored respirations on room air, clear bilaterally ABD: Soft, mild abdominal discomfort/soreness, non-distended MSK: No joint tenderness Integumentary: No rashes Neuro: Normal speech, normal affect Vital Signs/Physical Exam: Temp Pulse Resp BP Pulse Ox 97.2 F 90 16 154/79 H 98 08/24/22 08:00 08/24/22 08:00 08/24/22 08:00 08/24/22 08:00 08/24/22 08:00 Laboratory Data at Discharge: WBC 10.20 thou/uL (4.3-10.9) 08/24/22 05:12 Hgb 11.3 g/dL (12.0-15.0) L D 08/24/22 05:12 Hct 34.3 % (36.0-45.0) L 08/24/22 05:12 Plt Count 367 thou/uL (152-406) D 08/24/22 05:12 Sodium 136 mEq/L (136-145) 08/24/22 05:12 Potassium 3.3 mEq/L (3.5-5.1) L 08/24/22 05:12 BUN 9 mg/dL (7-18) 08/24/22 05:12 Creatinine 0.88 mg/dL (0.55-1.02) 08/24/22 05:12 Glucose 130 mg/dL (74-106) H 08/24/22 05:12 Phosphorus 3.5 mg/dL (2.5-4.9) 08/21/22 09:03 Magnesium 1.9 mg/dL (1.6-2.4) 08/24/22 05:12 Total Bilirubin 0.2 mg/dL (0.2-1.0) 08/24/22 05:12 AST 13 U/L (15-37) L 08/24/22 05:12 ALT 16 U/L (13-56) 08/24/22 05:12 Alkaline Phosphatase 81 U/L (45-117) D 08/24/22 05:12 Lipase 27 U/L (13-75) 08/21/22 09:03 Home Medications: Atorvastatin Calcium [Lipitor*] 10 mg PO BEDTIME 08/21/22 Losartan Potassium 100 mg PO DAILY 08/21/22 Venlafaxine HCl [Venlafaxine HCl ER] 150 mg PO DAILY 08/21/22 Ciprofloxacin HCl 500 mg PO BID 10 Days #20 tab 08/24/22 Metronidazole 500 mg PO Q8H 10 Days #30 tab 08/24/22 ondansetron HCL [Ondansetron HCl] 4 mg PO Q6H PRN #10 tab 08/24/22 New Medications: Ciprofloxacin HCl 500 mg PO BID 10 Days #20 tab Metronidazole 500 mg PO Q8H 10 Days #30 tab ondansetron HCL [Ondansetron HCl] 4 mg PO Q6H PRN #10 tab PRN Reason: Nausea / Vomiting Physician Discharge Instructions: Patient presented with abdominal pain, nausea, and reported dark/black stools. CT showed evidence of diffuse colitis. GI, Dr. Moreno, was consulted. Her symptoms were felt to be secondary to infectious colitis. She had gradual improvement of her symptoms with bowel rest, IV fluids, and antibiotics. Her hemoglobin remained stable there is no evidence of bleed. Her losartan was initially held due to her NEDA. Renal function (NEDA) improved back to her normal levels with IV hydration. She was advanced to a full liquid diet which she was tolerating. Dietitian was consulted to discuss food options over the next week or so. Discussed slowly incorporating more soft/regular food over the course of the next 1-2 weeks. No EGD/colonoscopy was warranted during this hospitalization. Dr. Moreno recommended patient follow-up in the office in the next few weeks, and she will need a colonoscopy in 4-6 weeks. Continue home medications as previously prescribed New prescriptions on discharge: Ciprofloxacin and metronidazole for 10 days, to complete ~2-week total course Zofran, as needed if develops nausea Follow-up: PCP within 1 week GI, Dr. Moreno, ~2-3 weeks Followup: Melissa Ball MD [Primary Care Provider] - Time spent managing pt's care (in minutes): 45
[2022-08-24] MEDS: ATORVASTATIN 10 MG TAB PO SCH (21:23)
[2022-08-24] MEDS: HYDROCODONE/APAP 5/325 MG TAB PO PRN (21:24)
[2022-08-24] MEDS: MELATONIN 5 MG TABLET PO PRN (22:33)
[2022-08-25] MEDS: METRONIDAZOLE 500mg IVPB 500 MG/100 ML BAG IV SCH (00:11)
[2022-08-25 06:17] LABS: Magnesium 1.8 mg/dL (1.6-2.4); Potassium 3.3 mEq/L (3.5-5.1)
[2022-08-25 07:51] VITALS: BP 140/77; TEMP 97
[2022-08-25] MEDS: VENLAFAXINE HCL XR 75 MG CAP PO SCH (08:07)
[2022-08-25] MEDS: LOSARTAN POTASSIUM 50 MG TABLET PO SCH (08:07)
[2022-08-25] MEDS ORDERED: POTASSIUM CL SA 10 MEQ TAB PO ONE (09:00)
== END 2022-08-25 08:52 | disposition home or self-care (01) | DRG 392 ==
LOC: ER 08:15 → ERHOLD 11:45 → 2ND 13:44
PROVIDERS: ADMIT Hospitalist; ATTEND Hospitalist
DX: A09 Infectious gastroenteritis and colitis, unspecified (principal); N17.9 Acute kidney failure, unspecified; K92.2 Gastrointestinal hemorrhage, unspecified; E87.6 Hypokalemia; E78.5 Hyperlipidemia, unspecified; F32.A Depression, unspecified; E86.0 Dehydration; D72.829 Elevated white blood cell count, unspecified; Z79.899 Other long term (current) drug therapy
CPT/HCPCS: 36415; 74018; 74177; 76705; 80048; 80053; 80076; 81001; 83690; 83735; 84100; 84132; 85014; 85018; 85025; 87040; 87045; 87046; 87324; 87804; 89055; 99285; J0360; J0744; J2270; J2405; J3475; J3480; J7030; Q9967